=== PATIENT | male | born 1975 | race American Indian/Alaskan Native ===

== ENCOUNTER 2016-04-25 10:32 | Inpatient (IN) | payer MEDICARE ==
--- NOTE | 2016-04-25 10:43 | Emergency Department Report ---
HPI - General Chief Complaint: Chest Pain Time Seen by Provider: 04/25/16 10:40 - HPI HPI: This is a 40-year-old Afro-Guy[place] male presents to the emergency department from home with a complaint of some intermittent chest pain, palpitations and being shocked by his AICD. It is also a pacemaker and the brand is [employer]. Patient has a history of CHF, hypertension and is legally deaf. Per EMS, the family says that he has been shocked multiple times recently and it happened again this morning. The patient usually goes to [facility], as that is closest to his house, but EMS was diverted as they are diverting any critical care patients allegedly. He denies any shortness of breath or fever, back pain. He was not given anything for symptoms prior to presentation. ED Past Medical Hx - Past Medical History Previous Medical History?: Yes Hx Congestive Heart Failure: Yes Hx Renal Disease: Yes - Surgical History Hx Pacemaker: Yes Hx Internal Defibrillator: Yes - Social History Smoking Status: Unknown if ever smoked - Medications Home Medications: Home Medications Medication Instructions Recorded Confirmed Last Taken Type Albuterol Sulfate [Proair 90 mcg IH Q6H 04/25/16 04/25/16 Unknown History Respiclick] Apixaban [Eliquis] 5 mg PO BID 04/25/16 04/25/16 Unknown History Cyanocobalamin [Vitamin B-12] 1,000 mcg PO DAILY 04/25/16 04/25/16 Unknown History Fluticasone [Flonase] 1 spray NS QDAY 04/25/16 04/25/16 Unknown History Furosemide [Lasix TAB] 40 mg PO BID 04/25/16 04/25/16 Unknown History ISOSORBIDE MONOnitrate [Imdur ER] 30 mg PO DAILY 04/25/16 04/25/16 Unknown History Metoprolol [Lopressor] 100 mg PO BID 04/25/16 04/25/16 Unknown History Pantoprazole [Protonix] 40 mg PO QDAY 04/25/16 04/25/16 Unknown History Simvastatin [Zocor TAB] 20 mg PO QHS 04/25/16 04/25/16 Unknown History Spironolactone [Aldactone] 25 mg PO QDAY 04/25/16 04/25/16 Unknown History glipiZIDE XL [Glucotrol Xl] 2.5 mg PO QAM 04/25/16 04/25/16 Unknown History ED Review of Systems ROS: Stated complaint: CHEST PAIN Other details as noted in HPI Comment: All other systems reviewed and negative Constitutional: denies: chills, fever Eyes: denies: eye pain, eye discharge, vision change ENT: denies: ear pain, throat pain Respiratory: denies: cough, shortness of breath, wheezing Cardiovascular: chest pain, palpitations Gastrointestinal: denies: abdominal pain, nausea, diarrhea Genitourinary: denies: urgency, dysuria Musculoskeletal: denies: back pain, joint swelling, arthralgia Skin: denies: rash, lesions Neurological: denies: headache, weakness, paresthesias Physical Exam - Physical Exam Vital Signs: Vital Signs 04/25/16 10:38 Pulse Rate 173 H Respiratory 20 Rate Blood Pressure 132/100 [Left] O2 Sat by Pulse 100 Oximetry Physical Exam: GENERAL: The patient is well-developed well-nourished. HEENT: Normocephalic. Atraumatic. Extraocular motions are intact. Patient has moist mucous membranes. Pupils equal reactive to light bilaterally. NECK: Supple. Trachea is midline. CHEST/LUNGS: Clear to auscultation. There is no respiratory distress noted. HEART/CARDIOVASCULAR: Irregularly irregular with rapid rate. ABDOMEN: Abdomen is soft, nontender. Patient has normal bowel sounds. There is no abdominal distention. SKIN: Warm and dry. NEURO: The patient is awake, alert, and oriented. The patient is cooperative. The patient has no focal neurologic deficits. The patient has normal speech. MUSCULOSKELETAL: There is no tenderness or deformity. There is no limitation range of motion. There is no evidence of acute injury. ED Course Vital Signs 04/25/16 10:38 Pulse Rate 173 H Respiratory 20 Rate Blood Pressure 132/100 [Left] O2 Sat by Pulse 100 Oximetry ED Medical Decision Making - Lab Data Result diagrams: 04/25/16 10:53 04/25/16 10:53 - EKG Data -: EKG Interpreted by Me - EKG Data Interpretation: other (atrial fibrillation, left bundle-branch block, rate 175 bpm) - Radiology Data Radiology results: image reviewed interpreted by me: Chest x-ray did not show any acute process. Heart is normal shape and size. No effusions. No pneumothorax. No signs of pneumonia seen. - Medical Decision Making 32-year-old male presents to the emergency department with a tachyarrhythmia. Patient had been shocked a few times this morning by his AICD. The rep for [employer] came in and interrogated the AICD/pacemaker and it was sent for 162 bpm but he was going higher than that with his atrial fibrillation. Patient is already on Eloquist. He was given IV push of Cardizem 2 and then started on a drip and this did not convert him but did control her rate. Cardiology is aware that Dr. Butler saw the patient down in the emergency department. Patient will be admitted to the hospital for further evaluation and treatment and is been accepted for admission by the hospitalist, Dr. Bhatt. - Differential Diagnosis atrial fibrillation, OK, V. tach, SVT Critical Care Time: No Critical care attestation.: If time is entered above; I have spent that time in minutes in the direct care of this critically ill patient, excluding procedure time. ED Disposition Clinical Impression: Atrial fibrillation with RVR, Defibrillator discharge, Renal insufficiency Disposition: OP ADMITTED IP TO THIS HOSP Is pt being admited?: Yes Does the pt Need Aspirin: Yes Condition: Stable Time of Disposition: 13:31
[2016-04-25] MEDS ORDERED: CARDIZEM IV ONE ×2 (10:52→12:53)
--- NOTE | 2016-04-25 11:11 | XRay Report ---
CHEST XRAY, 2 VIEWS: History: Chest pain. Findings: No comparison. There is moderate cardiomegaly. Pulmonary vessels are within normal limits. The lungs are clear and fully expanded. No infiltrate, pleural effusion or pneumothorax. Normal thoracic cage. Pacemaker device is in position. IMPRESSION: Cardiomegaly.
[2016-04-25 11:21] LABS: Basophils % (Auto) 0.9 % (0.0-1.8); Eosinophils % (Auto) 0.3 % (0.0-4.3); Mean Corpuscular HGB Conc 31 % (32-34); Mean Corpuscular Volume 70 fl (84-94); Platelet Count 204 K/mm3 (140-440); Red Blood Count 6.97 M/mm3 (3.65-5.03); White Blood Count 5.1 K/mm3 (4.5-11.0)
[2016-04-25 11:24] LABS: Creatine Kinase MB 2.7 ng/mL (0.0-4.0)
[2016-04-25 11:25] LABS: BUN/Creatinine Ratio 22.5; Calcium 9.3 mg/dL (8.4-10.2); Chloride 101.3 mmol/L (98-107); Potassium 4.2 mmol/L (3.6-5.0)
[2016-04-25 11:32] LABS: INR 1.51 (0.87-1.13); Partial Thromboplastin Time 28.3 Sec. (24.2-36.6)
[2016-04-25 11:36] LABS: Mean Corpuscular Hemoglobin 22 pg (28-32)
[2016-04-25 11:37] LABS: Red Cell Distribution Width 20.1 % (13.2-15.2)
--- NOTE | 2016-04-25 13:13 | Admit Criteria Form ---
Admission Criteria Documentation: ATRIAL FIBRILLATION Clinical Indications for Admission to Inpatient Care (Place 'X' for any and all applicable criteria): Admission indicated for ANY ONE of the following(1)(2)(3)(4)(5) : [ ]I. Myocardial ischemia [ ]II. Dyspnea or hypoxemia [ ]III. Hemodynamic instability [ ]IV. Heart failure (e.g., pulmonary edema) (7) [ ]V. New-onset (less than 48 hours) atrial fibrillation with high risk for causing complications secondary to comorbidities (eg, symptomatic heart failure ) [ ]. Altered mental status [ ]VII. Syncope [X]VIII. Patient has implantable cardioverter defibrillator that has fired more than once within past 24hr or needs immediate adjustment of settings that cannot be done other than in inpatient setting. (8) [ ]IX. Suspected accessory pathway (e.g., Zldnz-Bentmoojy-Vfsub syndrome) on ECG [ ]X. Recent systemic thromboembolism (eg, stroke) [ ]XI. Medication toxicity (e.g., digitalis) causing arrhythmia(9) [ ]XII. Underlying medical condition that necessitates inpatient care (e.g., thyrotoxicosis, pneumonia) (10) [ ]XIII. Continuous ECG monitoring is required for condition causing arrhythmia (e.g., severe hyperkalemia, hypokalemia, acid-base disturbance).(11)(12)(13) [ ]XIV. Initiation of antiarrhythmic drug therapy is needed in patient at high risk of adverse effects as indicated by ANY ONE of the following: [ ]a) Significant structural heart disease (e.g., reduced ejection fraction, congenital heart disease, valvular heart disease) [ ]b) Prolonged QT interval [ ]c) Underlying sinus node or atrioventricular conduction disturbances [ ]d) Need for treatment with antiarrhythmic drugs that have significant proarrhythmic potential (e.g., dofetilide, sotalol, procainamide) [ ]e) Patient whose sinus rhythm has never been observed on ECG [ ]XV. Intolerable symptoms despite optimal outpatient treatment [ ]XVI. Elective or urgent cardioversion that cannot be performed on outpatient basis or during observation care. [A] (Use also Atrial Fibrillation: Observation Care ) as appropriate.(14) [ ]XVII.Contraindications and/or Inappropriate clinical situations for Observational Care in patients with Atrial Fibrillation, when ANY ONE of the following is required: [ ]a) Patient with High risk of cardiac embolism (e.g, patients with previous cardiac embolism, LVEF < 40%, age >75 and patients with prosthetic valve) 18 [ ]b) Patient with Moderate risk including DM patient, CAD and patient aged 65-75 18 [ ]c) Patient with any change in cardiac biomarker especially troponin should be managed as high risk in an inpatient setting 19 [ ]d) Physician judgement irrespective of ECG and other diagnostic findings 20 [ ]XVIII.General contraindications and/or Inappropriate clinical situations for Observational Care in patients with Atrial Fibrillation, when ANY ONE of the following is required: [ ]a) Prediction of prolongation of LOS based on ANY ONE of the following may be considered as a contraindication for observational care 2, 3, 4, 5, 6, 7, 8, 9, 10, 11 [ ]i) Age > 65 yrs. [ ]ii) Patient arriving by ambulance [ ]iii) Patient with high acuity [ ]iv) Patient requiring vital sign monitoring [ ]v) Patient on IV medication [ ]b) Systolic blood pressures 180mmHg 3,12 [ ]c) Patient with altered mental status including delirium and other alteration of consciousness3 [ ]d) Patient whose discharge disposition will be to a fpc home or rehabilitation home should not be managed in Emergency Department Observation Unit. CMS rule requires 3 days hospital stay before such placement.3,13 [ ]e) Patient with failure to thrive due to broad array of etiologies 3,16,17 [ ]f) Inability to ambulate 3,14 Extended stay beyond goal length of stay may be needed for (1)(25)(26): [ ]a) Unstable comorbidities [ ]b) Persistently uncontrolled atrial fibrillation or other arrhythmias [ ]c) Acute thromboembolic event (e.g., stroke, limb ischemia) [ ]d) Need for inpatient attainment of full anticoagulation The original [employer] content created by [employer] has been revised. The portions of the content which have been revised are identified through the use of italic text or in bold, and [employer] has neither reviewed nor approved the modified material. All other unmodified content is copyright [employer]. Please see references footnoted in the original [employer] edition 2016 Admission Criteria Met: Yes
[2016-04-25] MEDS: CARDIZEM/D5W 100MG/100ML 100 MG/100 ML BAG IV SCH (13:24)
[2016-04-25] MEDS ORDERED: BABY ASPIRIN PO ONE (13:31)
[2016-04-25 14:23] LABS: Urine Drugs of Abuse Note Disclamer
[2016-04-25 14:38] LABS: Bacteria,Urine 1+ /HPF (Negative); Bilirubin,Urine NEG (Negative); Blood,Urine MOD (Negative); Ketones,Urine NEG (Negative); Leukocyte Esterase,Urine LG (Negative); Mucus,Urine FEW /HPF; Nitrite,Urine NEG (Negative)
[2016-04-25 14:40] LABS: Protein,Urine >500 mg/dL (Negative); WBC,Urine > 182.0 /HPF (0.0-6.0)
--- NOTE | 2016-04-25 15:46 | Consultation ---
History of Present Illness Consult date: 04/25/16 Consult reason: atrial fibrillation History of present illness: 40 YO man with h/o non ischemic cardiomyopathy s/p Bi[employer]ron[employer] dual chamber ICD, Ventricular Tachycardia, persistent atrial fibrillation, hypertension, and prior CVA who presented to ED at [facility] today after multiple ICD shocks. Patient has permanent hearing loss and some element of aphasia from previous CVA and is not able to provide a thorough history. ICD was interrogated today and he has had numerous ATP therapies and several ICD shocks due to likely atrial fibrillation with RVR. He admits to not taking his cardiac medications recently. He has chronic exertional dyspnea with minimal activity including activities of daily living. He was previously followed by Dr. Walter in [place] and was recently evaluated by cardiology at [facility]. Past History Past Medical History: atrial fib, heart failure, hypertension, renal failure, stroke Past Surgical History: Other (ICD implant) Social history: denies: smoking (former smoker) Family history: CAD Medications and Allergies Allergies Allergy/AdvReac Type Severity Reaction Status Date / Time morphine Allergy Unknown Verified 04/25/16 10:38 Home Medications Medication Instructions Recorded Confirmed Last Taken Type Albuterol Sulfate [Proair 90 mcg IH Q6H 04/25/16 04/25/16 Unknown History Respiclick] Apixaban [Eliquis] 5 mg PO BID 04/25/16 04/25/16 Unknown History Cyanocobalamin [Vitamin B-12] 1,000 mcg PO DAILY 04/25/16 04/25/16 Unknown History Fluticasone [Flonase] 1 spray NS QDAY 04/25/16 04/25/16 Unknown History Furosemide [Lasix TAB] 40 mg PO BID 04/25/16 04/25/16 Unknown History ISOSORBIDE MONOnitrate [Imdur ER] 30 mg PO DAILY 04/25/16 04/25/16 Unknown History Metoprolol [Lopressor] 100 mg PO BID 04/25/16 04/25/16 Unknown History Pantoprazole [Protonix] 40 mg PO QDAY 04/25/16 04/25/16 Unknown History Simvastatin [Zocor TAB] 20 mg PO QHS 04/25/16 04/25/16 Unknown History Spironolactone [Aldactone] 25 mg PO QDAY 03/14/17 03/14/17 Unknown History glipiZIDE XL [Glucotrol Xl] 2.5 mg PO QAM 04/25/16 04/25/16 Unknown History Active Meds: Active Medications Diltiazem HCl (Cardizem/D5w 100mg/100ml) 100 mg in 100 mls @ 5 mls/hr IV TITR MARTÍN; 5 MG/HR PRN Reason: Protocol Last Admin: 04/25/16 13:24 Dose: 5 mg/hr, 5 mls/hr Review of Systems All systems: negative (per hpi) Physical Examination Vital Signs Pulse Resp BP Pulse Ox 173 H 20 132/100 100 04/25/16 10:38 04/25/16 10:38 04/25/16 10:38 04/25/16 10:38 General appearance: obese HEENT: Positive: Mucus Membranes Moist Neck: Positive: JVD/HJR (7 cm above sternal notch) Cardiac: Positive: irregularly irregular, Tachycardia Lungs: Positive: Rales (bibasilar crackles) Abdomen: Positive: Soft, Active Bowel Sounds Skin: Positive: Clear Extremities: Present: +3 Edema Results 04/25/16 10:53 04/25/16 10:53 EKG interpretations - EKG Supraventricular dysrhythmia: atrial fibrillation AV and intraventricular conduction: left bundle branch block Assessment and Plan Multiple ICD therapies: Likely inappropriate due to atrial fibrillation with RVR Non Ischemic Cardiomyopathy s/p dual chamber ICD Acute on chronic systolic heart failure: NYHA III Persistent atrial fibrillation CKD Non-specific troponin elevation likely related to multiple ICD therapies and CKD. LBBB Htn S/P CVA Recommend: Restart beta brodie and titrate to maximal tolerated dose. IV diuresis Nephrology evaluation Continue systemic anticoagulation Maintain electrolytes in normal range. ICD has been reprogrammed to prevent future inappropriate ICD shocks. He will eventually benefit from upgrade to [employer]OTH OPERATOR-D and possibly AV node ablation - he will f/u with primary embedded developer at [facility] as outpatient.
[2016-04-25] MEDS ORDERED: TYLENOL PO PRN (15:55)
[2016-04-25] MEDS ORDERED: DULCOLAX PR PRN (15:55)
[2016-04-25] MEDS ORDERED: MILK OF MAGNESIA PO PRN (15:55)
--- NOTE | 2016-04-25 15:59 | History and Physical Report ---
History of Present Illness Date of examination: 04/25/16 Date of admission: 04/25/16 13:32 Chief complaint: Multiple shocks today History of present illness: 40 YO man with h/o non ischemic cardiomyopathy s/p Biotronik dual chamber ICD, Ventricular Tachycardia, persistent atrial fibrillation, hypertension, and prior CVA who presented to ED at [facility] today after multiple ICD shocks. Patient has permanent hearing loss and some element of aphasia from previous CVA and is not able to provide a thorough history. ICD was interrogated today and he has had numerous ATP therapies and several ICD shocks due to likely atrial fibrillation with RVR. He admits to not taking his cardiac medications recently. He has chronic exertional dyspnea with minimal activity including activities of daily living. He was previously followed by Dr. Walter in [place] and was recently evaluated by cardiology at [facility]. Past History Past Medical History: atrial fib, heart failure, hypertension, renal failure, stroke Past Surgical History: Other (ICD implant) Social history: lives with family. denies: smoking (former smoker) Family history: CAD, hypertension Medications and Allergies Allergies Allergy/AdvReac Type Severity Reaction Status Date / Time morphine Allergy Unknown Verified 04/25/16 10:38 Home Medications Medication Instructions Recorded Confirmed Last Taken Type Albuterol Sulfate [Proair 90 mcg IH Q6H 04/25/16 04/25/16 Unknown History Respiclick] Apixaban [Eliquis] 5 mg PO BID 04/25/16 04/25/16 Unknown History Cyanocobalamin [Vitamin B-12] 1,000 mcg PO DAILY 04/25/16 04/25/16 Unknown History Fluticasone [Flonase] 1 spray NS QDAY 04/25/16 04/25/16 Unknown History Furosemide [Lasix TAB] 40 mg PO BID 04/25/16 04/25/16 Unknown History ISOSORBIDE MONOnitrate [Imdur ER] 30 mg PO DAILY 04/25/16 04/25/16 Unknown History Metoprolol [Lopressor] 100 mg PO BID 04/25/16 04/25/16 Unknown History Pantoprazole [Protonix] 40 mg PO QDAY 04/25/16 04/25/16 Unknown History Simvastatin [Zocor TAB] 20 mg PO QHS 04/25/16 04/25/16 Unknown History Spironolactone [Aldactone] 25 mg PO QDAY 04/25/16 04/25/16 Unknown History glipiZIDE XL [Glucotrol Xl] 2.5 mg PO QAM 04/25/16 04/25/16 Unknown History Active Meds: Active Medications Diltiazem HCl (Cardizem/D5w 100mg/100ml) 100 mg in 100 mls @ 5 mls/hr IV TITR MARTÍN; 5 MG/HR PRN Reason: Protocol Last Admin: 04/25/16 13:24 Dose: 5 mg/hr, 5 mls/hr Review of Systems All systems: negative Constitutional: no weight loss, no weight gain Ears, nose, mouth and throat: decreased hearing, no dysphagia, no hoarseness, no sore throat Cardiovascular: palpitations, rapid/irregular heart beat, shortness of breath, decreased exercise tolerance Respiratory: shortness of breath, dyspnea on exertion, no cough with sputum, no excessive sputum, no hemoptysis, no congestion Gastrointestinal: no nausea, no vomiting, no diarrhea Genitourinary Male: no flank pain, no discharge, no urinary frequency, no urinary hesitancy, no nocturia Musculoskeletal: no neck stiffness, no neck pain Integumentary: no rash, no pruritis, no redness Neurological: no seizures, no syncope Psychiatric: change in libido, no anxiety, no depression Endocrine: no cold intolerance, no heat intolerance, no polyphagia, no excessive thirst, no polydipsia, no polyuria Hematologic/Lymphatic: no easy bruising, no easy bleeding Allergic/Immunologic: no urticaria, no allergic rhinitis, no wheezing Exam - Constitutional Vitals: Temp Pulse Resp BP Pulse Ox 87 12 100/72 95 04/25/16 14:00 04/25/16 14:00 04/25/16 14:00 04/25/16 14:00 General appearance: Present: mild distress, well-nourished - EENT Eyes: Present: PERRL ENT: clear oral mucosa, no hearing intact, no dentition normal - Neck Neck: Present: supple, normal ROM - Respiratory Respiratory effort: normal Respiratory: bilateral: rales - Cardiovascular Rhythm: irregularly irregular Heart Sounds: Present: S1 & S2. Absent: rub, click - Extremities Extremities: pulses symmetrical, No edema Peripheral Pulses: within normal limits - Abdominal General gastrointestinal: Present: soft, non-tender, non-distended, normal bowel sounds Male genitourinary: Present: normal - Rectal Rectal Exam: deferred - Integumentary Integumentary: Present: clear, warm, dry - Musculoskeletal Musculoskeletal: gait normal, strength equal bilaterally - Psychiatric Psychiatric: appropriate mood/affect, intact judgment & insight - Neurologic Neurologic: CNII-XII intact, moves all extremities - Allied Health Allied health notes reviewed: nursing, case management Results - Labs CBC & Chem 7: 04/26/16 06:41 04/26/16 06:41 Labs: Laboratory Last Values WBC 5.1 K/mm3 (4.5-11.0) 04/25/16 10:53 RBC 6.97 M/mm3 (3.65-5.03) H 04/25/16 10:53 Hgb 15.0 gm/dl (11.8-15.2) 04/25/16 10:53 Hct 49.0 % (35.5-45.6) H 04/25/16 10:53 MCV 70 fl (84-94) L 04/25/16 10:53 MCH 22 pg (28-32) L 04/25/16 10:53 MCHC 31 % (32-34) L 04/25/16 10:53 RDW 20.1 % (13.2-15.2) H 04/25/16 10:53 Plt Count 204 K/mm3 (140-440) 04/25/16 10:53 Lymph % (Auto) 16.0 % (13.4-35.0) 04/25/16 10:53 [place] % (Auto) 10.0 % (0.0-7.3) H 04/25/16 10:53 Eos % (Auto) 0.3 % (0.0-4.3) 04/25/16 10:53 Baso % (Auto) 0.9 % (0.0-1.8) 04/25/16 10:53 Lymph # 0.8 K/mm3 (1.2-5.4) L 04/25/16 10:53 [place] # 0.5 K/mm3 (0.0-0.8) 04/25/16 10:53 Eos # 0.0 K/mm3 (0.0-0.4) 04/25/16 10:53 Baso # 0.0 K/mm3 (0.0-0.1) 04/25/16 10:53 Seg Neutrophils % 72.8 % (40.0-70.0) H 04/25/16 10:53 Seg Neutrophils # 3.7 K/mm3 (1.8-7.7) 04/25/16 10:53 PT 18.2 Sec. (12.2-14.9) H 04/25/16 10:53 INR 1.51 (0.87-1.13) H 04/25/16 10:53 APTT 28.3 Sec. (24.2-36.6) 04/25/16 10:53 D-Dimer < 136 ng/mlDDU (0-234) 04/25/16 10:53 Sodium 141 mmol/L (137-145) 04/25/16 10:53 Potassium 4.2 mmol/L (3.6-5.0) 04/25/16 10:53 Chloride 101.3 mmol/L (98-107) 04/25/16 10:53 Carbon Dioxide 21 mmol/L (22-30) L 04/25/16 10:53 Anion Gap 23 mmol/L 04/25/16 10:53 BUN 72 mg/dL (9-20) H 04/25/16 10:53 Creatinine 3.2 mg/dL (0.8-1.5) H 04/25/16 10:53 Estimated GFR 22 ml/min 04/25/16 10:53 BUN/Creatinine Ratio 22.50 % 04/25/16 10:53 Glucose 137 mg/dL (75-100) H 04/25/16 10:53 Calcium 9.3 mg/dL (8.4-10.2) 04/25/16 10:53 Total Creatine Kinase 101 units/L (55-170) 04/25/16 10:53 CK-MB (CK-2) 2.7 ng/mL (0.0-4.0) 04/25/16 10:53 CK-MB (CK-2) Rel Index 2.6 (0-4) 04/25/16 10:53 Troponin T 0.037 ng/mL (0.00-0.029) H 04/25/16 10:53 NT-Pro-B Natriuret Pep 72302 pg/mL (0-450) H 04/25/16 10:53 Triglycerides 96 mg/dL (2-149) 04/25/16 10:53 Cholesterol 80 mg/dL (50-199) 04/25/16 10:53 LDL Cholesterol Direct 30 mg/dL (50-130) L 04/25/16 10:53 HDL Cholesterol 31 mg/dL (40-59) L 04/25/16 10:53 Cholesterol/HDL Ratio 2.58 % 04/25/16 10:53 Urine Color [place] (Yellow) 04/25/16 13:40 Urine Turbidity Cloudy (Clear) 04/25/16 13:40 Urine pH 5.0 (5.0-7.0) 04/25/16 13:40 Ur Specific [place] 1.017 (1.003-1.030) 04/25/16 13:40 Urine Protein >500 mg/dL (Negative) 04/25/16 13:40 Urine Glucose (UA) Neg mg/dL (Negative) 04/25/16 13:40 Urine Ketones Neg mg/dL (Negative) 04/25/16 13:40 Urine Blood Mod (Negative) 04/25/16 13:40 Urine Nitrite Neg (Negative) 04/25/16 13:40 Urine Bilirubin Neg (Negative) 04/25/16 13:40 Urine Urobilinogen 2.0 mg/dL (<2.0) 04/25/16 13:40 Ur Leukocyte Esterase Lg (Negative) 04/25/16 13:40 Urine WBC (Auto) > 182.0 /HPF (0.0-6.0) H 04/25/16 13:40 Urine RBC (Auto) 15.0 /HPF (0.0-6.0) 04/25/16 13:40 U Epithel Cells (Auto) 3.0 /HPF (0-13.0) 04/25/16 13:40 Urine Bacteria (Auto) 1+ /HPF (Negative) 04/25/16 13:40 Ur Transition Epith Cell 2 /HPF 04/25/16 13:40 Urine Mucus Few /HPF 04/25/16 13:40 Urine Opiates Screen Presumptive negative 04/25/16 13:40 Urine Methadone Screen Presumptive negative 04/25/16 13:40 Ur Barbiturates Screen Presumptive negative 04/25/16 13:40 Ur Phencyclidine Scrn Presumptive negative 04/25/16 13:40 Ur Amphetamines Screen Presumptive negative 04/25/16 13:40 U Benzodiazepines Scrn Presumptive negative 04/25/16 13:40 Urine Cocaine Screen Presumptive negative 04/25/16 13:40 U Marijuana (THC) Screen Presumptive negative 04/25/16 13:40 Drugs of Abuse Note Disclamer 04/25/16 13:40 Short CBC 04/25/16 Range/Units 10:53 WBC 5.1 (4.5-11.0) K/mm3 Hgb 15.0 (11.8-15.2) gm/dl Hct 49.0 H (35.5-45.6) % Plt Count 204 (140-440) K/mm3 BMP 04/25/16 10:53 Sodium 141 Potassium 4.2 Chloride 101.3 Carbon Dioxide 21 L BUN 72 H Creatinine 3.2 H Glucose 137 H Calcium 9.3 Cardiac Enzymes 04/25/16 Range/Units 10:53 Total Creatine Kinase 101 (55-170) units/L CK-MB (CK-2) 2.7 (0.0-4.0) ng/mL Troponin T 0.037 H (0.00-0.029) ng/mL Urine 04/25/16 Range/Units 13:40 Urine Color Mylene (Yellow) Urine pH 5.0 (5.0-7.0) Ur Specific [place] 1.017 (1.003-1.030) Urine Protein >500 (Negative) mg/dL Urine Glucose (UA) Neg (Negative) mg/dL Short CBC 04/25/16 04/26/16 Range/Units 10:53 06:41 WBC 5.1 5.1 (4.5-11.0) K/mm3 Hgb 15.0 14.2 (11.8-15.2) gm/dl Hct 49.0 H 46.3 H (35.5-45.6) % Plt Count 204 201 (140-440) K/mm3 BMP 04/25/16 04/26/16 10:53 06:41 Sodium 141 139 Potassium 4.2 4.4 Chloride 101.3 98.6 Carbon Dioxide 21 L 25 BUN 72 H 73 H Creatinine 3.2 H 2.9 H Glucose 137 H 126 H Calcium 9.3 9.2 Cardiac Enzymes 04/25/16 04/25/16 04/25/16 Range/Units 10:53 15:45 15:45 Total Creatine Kinase 101 103 (55-170) units/L CK-MB (CK-2) 2.7 2.8 (0.0-4.0) ng/mL Troponin T 0.037 H 0.047 H D 0.044 H (0.00-0.029) ng/mL Liver Function 04/26/16 Range/Units 06:41 Total Bilirubin 3.0 H (0.1-1.2) mg/dL AST 33 (5-40) units/L ALT 60 H (7-56) units/L Alkaline Phosphatase 101 (35-129) units/L Albumin 2.6 L (3.9-5) g/dL Urine 04/25/16 Range/Units 13:40 Urine Color [place] (Yellow) Urine pH 5.0 (5.0-7.0) Ur Specific [place] 1.017 (1.003-1.030) Urine Protein >500 (Negative) mg/dL Urine Glucose (UA) Neg (Negative) mg/dL - Imaging and Cardiology EKG: report reviewed Chest x-ray: report reviewed Assessment and Plan Advance Directives: Yes (Full code) VTE prophylaxis?: Chemical Plan of care discussed with patient/family: Yes - Patient Problems (1) Atrial fibrillation with RVR Current Visit: Yes Status: Acute Plan to address problem: Cont Cardizem and metoprolol.Patient initiated on metoprolol at 50 mg tid.On Metoprolol 100 bid originally. (2) Defibrillator discharge Current Visit: Yes Status: Acute Plan to address problem: Deferred to Dr Butler-EPS specialist (3) Renal insufficiency Current Visit: Yes Status: Chronic Plan to address problem: Nephrology consulted (4) Acute exacerbation of CHF (congestive heart failure) Current Visit: Yes Status: Acute Qualifiers: Congestive heart failure type: combined Qualified Code(s): I50.43 - Acute on chronic combined systolic (congestive) and diastolic (congestive) heart failure Plan to address problem: Lasix 40 iv q12h (5) T2DM (type 2 diabetes mellitus) Current Visit: Yes Status: Acute Qualifiers: Diabetes mellitus complication status: without complication Diabetes mellitus complication detail: D Diabetic retinopathy severity: D Proliferative retinopathy type: P Diabetes mellitus macular edema: D Laterality: L Chronic kidney disease stage: C Plan to address problem: Cont oral Hypoglycemics and coverage (6) DVT prophylaxis Current Visit: Yes Status: Acute Plan to address problem: On Eliquis
[2016-04-25 16:28] LABS: Creatine Kinase MB 2.8 ng/mL (0.0-4.0)
[2016-04-25] MEDS: LOPRESSOR PO SCH (21:06)
[2016-04-26] MEDS: CARDIZEM/D5W 100MG/100ML 100 MG/100 ML BAG IV SCH (05:55)
[2016-04-26 07:14] LABS: Basophils % (Auto) 1.2 % (0.0-1.8); Eosinophils % (Auto) 0.6 % (0.0-4.3); Mean Corpuscular HGB Conc 31 % (32-34); Platelet Count 201 K/mm3 (140-440); Red Blood Count 6.66 M/mm3 (3.65-5.03); White Blood Count 5.1 K/mm3 (4.5-11.0)
[2016-04-26 07:20] LABS: Albumin 2.6 g/dL (3.9-5); Albumin/Globulin Ratio 0.7 %; BUN/Creatinine Ratio 25.17; Calcium 9.2 mg/dL (8.4-10.2); Chloride 98.6 mmol/L (98-107); Potassium 4.4 mmol/L (3.6-5.0); Total Protein 6.3 g/dL (6.3-8.2)
[2016-04-26 07:31] LABS: Hemoglobin 14.2 gm/dl (11.8-15.2)
[2016-04-26 07:32] LABS: Hematocrit 46.3 % (35.5-45.6); Mean Corpuscular Hemoglobin 21 pg (28-32); Mean Corpuscular Volume 70 fl (84-94); Red Cell Distribution Width 20.1 % (13.2-15.2)
[2016-04-26] MEDS: LOPRESSOR PO SCH ×3 (08:38→21:25)
[2016-04-26] MEDS ORDERED: NON-FORMULARY (Albuterol Sulfate [Proair Respiclick] 90 MCG) IH SCH (09:00)
[2016-04-26] MEDS ORDERED: XYLOCAINE 1% MPF 5 mL INFILTRATI ONE (09:08)
--- NOTE | 2016-04-26 09:37 | Consultation ---
History of Present Illness - Reason for Consult Consult date: 04/26/16 acute renal failure, chronic renal failure Requesting physician: LANDEN SCRUGGS - History of Present Illness This is a 40-year-old Afro-[place] male presents to the emergency department from home with a complaint of some intermittent chest pain, palpitations and being shocked by his AICD. It is also a pacemaker and the brand is Biotronik. Patient has a history of CHF, hypertension and is legally deaf. Per EMS, the family says that he has been shocked multiple times recently and it happened again this morning. The patient usually goes to [facility], as that is closest to his house, but EMS was diverted as they are diverting any critical care patients allegedly. He denies any shortness of breath or fever, back pain. He was not given anything for symptoms prior to presentation. Past History Past Medical History: atrial fib, heart failure, hypertension, renal failure, stroke Past Surgical History: Other (ICD implant) Social history: lives with family. denies: smoking (former smoker) Family history: CAD, hypertension Medications and Allergies Allergies Allergy/AdvReac Type Severity Reaction Status Date / Time morphine Allergy Unknown Verified 04/25/16 10:38 Home Medications Medication Instructions Recorded Confirmed Last Taken Type Albuterol Sulfate [Proair 90 mcg IH Q6H 04/25/16 04/25/16 Unknown History Respiclick] Apixaban [Eliquis] 5 mg PO BID 04/25/16 04/25/16 Unknown History Cyanocobalamin [Vitamin B-12] 1,000 mcg PO DAILY 04/25/16 04/25/16 Unknown History Fluticasone [Flonase] 1 spray NS QDAY 04/25/16 04/25/16 Unknown History Furosemide [Lasix TAB] 40 mg PO BID 04/25/16 04/25/16 Unknown History ISOSORBIDE MONOnitrate [Imdur ER] 30 mg PO DAILY 04/25/16 04/25/16 Unknown History Metoprolol [Lopressor] 100 mg PO BID 04/25/16 04/25/16 Unknown History Pantoprazole [Protonix] 40 mg PO QDAY 04/25/16 04/25/16 Unknown History Simvastatin [Zocor TAB] 20 mg PO QHS 04/25/16 04/25/16 Unknown History Spironolactone [Aldactone] 25 mg PO QDAY 04/25/16 04/25/16 Unknown History glipiZIDE XL [Glucotrol Xl] 2.5 mg PO QAM 04/25/16 04/25/16 Unknown History Active Meds: Active Medications Acetaminophen (Tylenol) 650 mg PO Q4H PRN PRN Reason: Pain MILD(1-3)/Fever >100.5/COON Last Admin: 04/25/16 22:23 Dose: 650 mg Albuterol (Proventil) 2.5 mg IH Q6HRT MARTÍN Apixaban (Eliquis) 5 mg PO BID MARTÍN Bisacodyl (Dulcolax) 10 mg LA QDAY PRN PRN Reason: Constipation unrelieved by [facility] Cyanocobalamin (Vitamin B-12) 1,000 mcg PO DAILY [facility] Fluticasone Propionate (Flonase) 100 mcg NS QDAY [facility] Furosemide (Lasix) 40 mg IV 0600,1800 [facility] Glipizide (Glucotrol Xl) 2.5 mg PO QDDIAB [facility] Diltiazem HCl (Cardizem/D5w 100mg/100ml) 100 mg in 100 mls @ 5 mls/hr IV TITR MARTÍN; 5 MG/HR PRN Reason: Protocol Last Admin: 04/26/16 05:55 Dose: 5 mg/hr, 5 mls/hr Ceftriaxone Sodium (Rocephin/Ns 1 Gm/50 Ml) 1 gm in 50 mls @ 100 mls/hr IV Q24HR [facility] Insulin Aspart (Novolog) 0 units SUB-Q ACHS MARTÍN PRN Reason: Protocol Isosorbide Mononitrate (Imdur) 30 mg PO DAILY [facility] Magnesium Hydroxide (Milk Of Magnesia) 30 ml PO Q4H PRN PRN Reason: Constipation Metoprolol Tartrate (Lopressor) 50 mg PO TID [facility] Last Admin: 04/26/16 08:38 Dose: 50 mg Ondansetron HCl (Zofran) 4 mg IV Q8H PRN PRN Reason: N/V unrelieved by Reglan Oxycodone/Acetaminophen (Percocet 5/325) 1 tab PO Q6H PRN PRN Reason: Pain, Moderate (4-6) Pantoprazole Sodium (Protonix) 40 mg PO QDAY MARTÍN Simvastatin (Zocor) 20 mg PO QHS MART[facility]N Spironolactone (Aldactone) 25 mg PO QDAY [facility] Review of Systems Constitutional: fatigue, weakness, malaise Cardiovascular: chest pain, rapid/irregular heart beat, shortness of breath Exam - Vital Signs Vital signs: Vital Signs Pulse Resp BP Pulse Ox 173 H 20 132/100 100 04/25/16 10:38 04/25/16 10:38 04/25/16 10:38 04/25/16 10:38 - Physical Exam Narrative exam: GENERAL: The patient is well-developed well-nourished. HEENT: Normocephalic. Atraumatic. Extraocular motions are intact. Patient has moist mucous membranes. Pupils equal reactive to light bilaterally. NECK: Supple. Trachea is midline. CHEST/LUNGS: Clear to auscultation. There is no respiratory distress noted. HEART/CARDIOVASCULAR: Irregularly irregular with rapid rate. ABDOMEN: Abdomen is soft, nontender. Patient has normal bowel sounds. There is no abdominal distention. SKIN: Warm and dry. NEURO: The patient is awake, alert, and oriented. The patient is cooperative. The patient has no focal neurologic deficits. The patient has normal speech. MUSCULOSKELETAL: There is no tenderness or deformity. There is no limitation range of motion. There is no evidence of acute injury. Results - Lab Results 04/26/16 06:41 04/26/16 06:41 Most recent lab results Calcium 9.2 mg/dL (8.4-10.2) 04/26/16 06:41 Assessment and Plan Impression: * amira on ?ckd * cardiomyopathy * s/p aicd discharge * arrythmia * htn * UTI Plan: * renal us, ua and urine lytes * avoid nephrotoxins * strict i/os * renal diet * iv abx * would benefit from inotropic therapy * continue diuresis
[2016-04-26] MEDS ORDERED: LASIX IV SCH ×2 (10:00→18:00)
[2016-04-26] MEDS ORDERED: ROCEPHIN 1,000 MG in NACL 0.9% 50 ML IV SCH (10:00)
[2016-04-26] MEDS ORDERED: IMDUR PO SCH (10:00)
[2016-04-26] MEDS ORDERED: ALDACTONE PO SCH (10:00)
[2016-04-26] MEDS: ROCEPHIN/NS 1 GM/50 ML 1 GM/50 ML BAG IV SCH (10:00)
[2016-04-26] MEDS ORDERED: LOPRESSOR PO SCH (10:00)
[2016-04-26] MEDS: ZOFRAN IV PRN (10:07)
[2016-04-26] MEDS: ELIQUIS PO SCH ×2 (10:12→21:25)
[2016-04-26] MEDS: PROTONIX PO SCH (10:15)
[2016-04-26] MEDS: VITAMIN B-12 PO SCH (10:15)
[2016-04-26] MEDS: GLUCOTROL XL PO SCH (10:19)
[2016-04-26] MEDS: PROVENTIL IH SCH ×3 (10:31→19:23)
--- NOTE | 2016-04-26 10:38 | Progress Note ---
Assessment and Plan Multiple ICD therapies: Likely inappropriate due to atrial fibrillation with RVR Non Ischemic Cardiomyopathy s/p dual chamber ICD, LVEF 15-20% 02/2016 Acute on chronic systolic heart failure: NYHA III Persistent atrial fibrillation CKD Non-specific troponin elevation likely related to multiple ICD therapies and CKD. LBBB Htn S/P CVA Recommend: Continue beta brodie Discontinue IV diltiazem Start low dose digoxin every other day Monitor level closely Start IV milrinone Discontinue Imdur and aldactone Increase lasix to 80 mg IV q12hrs Continue eliquis Subjective Date of service: 04/26/16 Principal diagnosis: Acute on chronic systolic heart failure Interval history: Patient is not verbal. History obtained from family member at bedside. Recent hospitalizations for CHF this year x 4 Objective Vital Signs Temp Pulse Pulse Pulse Resp BP BP 04/26/16 09:12 98.2 F 77 18 04/26/16 08:38 100 H 04/26/16 07:43 97.6 F 90 18 04/26/16 06:11 97.6 F 90 20 133/94 04/26/16 05:55 90 133/94 04/26/16 00:46 04/26/16 00:30 97.7 F 50 L 18 04/25/16 21:51 97.9 F 48 L 20 04/25/16 21:06 95 H 121/73 04/25/16 18:00 97.6 F 102 H 20 143/48 04/25/16 14:00 87 12 100/72 BP Pulse Ox 04/26/16 09:12 117/73 91 04/26/16 08:38 04/26/16 07:43 133/94 96 04/26/16 06:11 100 04/26/16 05:55 04/26/16 00:46 95 04/26/16 00:30 95 04/25/16 21:51 121/73 97 04/25/16 21:06 04/25/16 18:00 96 04/25/16 14:00 95 - Physical Examination General: Appears Well HEENT: Positive: Mucus Membranes Moist Neck: Positive: JVD/HJR (7 cm above sternal notch) Cardiac: Positive: irregularly irregular Lungs: Positive: Normal Breath Sounds Abdomen: Positive: Soft, Active Bowel Sounds Skin: Positive: Clear Extremities: Present: +3 Edema - Labs and Meds Cardiac Enzymes 04/25/16 04/26/16 Range/Units 15:45 06:41 AST 33 (5-40) units/L CK-MB (CK-2) 2.8 (0.0-4.0) ng/mL CBC 04/26/16 Range/Units 06:41 WBC 5.1 (4.5-11.0) K/mm3 RBC 6.66 H (3.65-5.03) M/mm3 Hgb 14.2 (11.8-15.2) gm/dl Hct 46.3 H (35.5-45.6) % Plt Count 201 (140-440) K/mm3 Lymph # 0.9 L (1.2-5.4) K/mm3 [place] # 0.5 (0.0-0.8) K/mm3 Eos # 0.0 (0.0-0.4) K/mm3 Baso # 0.1 (0.0-0.1) K/mm3 Comprehensive Metabolic Panel 04/26/16 Range/Units 06:41 Sodium 139 (137-145) mmol/L Potassium 4.4 (3.6-5.0) mmol/L Chloride 98.6 (98-107) mmol/L Carbon Dioxide 25 (22-30) mmol/L BUN 73 H (9-20) mg/dL Creatinine 2.9 H (0.8-1.5) mg/dL Glucose 126 H (75-100) mg/dL Calcium 9.2 (8.4-10.2) mg/dL AST 33 (5-40) units/L ALT 60 H (7-56) units/L Alkaline Phosphatase 101 (35-129) units/L Total Protein 6.3 (6.3-8.2) g/dL Albumin 2.6 L (3.9-5) g/dL - Imaging and Cardiology EKG: report reviewed AV and intraventricular conduction: left bundle branch block
[2016-04-26] MEDS: LANOXIN PO SCH (12:42)
[2016-04-26] MEDS: FLONASE NS SCH (12:43)
[2016-04-26] MEDS: PRIMACOR 20 MG in D5W 80 ML IV SCH ×2 (12:49→18:42)
[2016-04-26] MEDS: NOVOLOG SUB-Q SCH ×2 (12:49→17:56)
--- NOTE | 2016-04-26 14:27 | Ultrasound Report ---
Renal ultrasound: The right renal length is 11.3 cm and the left renal length is 11 cm. Both kidneys are markedly echogenic. There is no evidence of renal mass nor obstructive uropathy. Imaging over the region of the urinary bladder failed to identify this structure however he gives a history of emptying the bladder just prior to the exam. Impressions: Echogenic kidneys consistent with medical renal disease.
--- NOTE | 2016-04-26 17:06 | Progress Note ---
Assessment and Plan Assessment and plan: Multiple AICD discharges. he was seen by Dr. Butler Atrial fibrillation with rvr. Started on Milrinone drip. He has been evaluated by Dr. Butler Persistent afib. On Eliquis for anticoagulation Acute on chronic systolic CHF. Lasix iv. Started on Milrinone drip. Chronic kidney disease. Nephrology following. Nonischemic cardiomyopathy s/p AICD placement Hypertension. BP stable Diabetes. Check fingerstick Qac hs Morbid obesity. DVT prophylaxis. On Eliquis Full code status History Interval history: AICD firing, no chest pain Hospitalist Physical - Physical exam Narrative exam: Gen: not in acute distress, morbidly obese HEENT: normocephalic,atraumatic Neck :supple, no JVD Lungs: clear to auscultation bilaterally, no crackles no wheezes Heart: S1 and S2 irregular, no murmurs no gallops,no rubs Abdomen: soft nontender, nondistended, normal bowel sounds Extremities: no edema, no clubbing or cyanosis Neuro: Awake alert oriented, hearing impaired Psych: Normal mood - Constitutional Vitals: Temp Pulse Resp BP Pulse Ox 98.2 F 60 20 124/87 98 04/26/16 13:22 04/26/16 13:22 04/26/16 13:22 04/26/16 13:22 04/26/16 13:22 General appearance: Present: mild distress, well-nourished Results - Labs CBC & Chem 7: 04/26/16 06:41 04/27/16 05:55 Labs: Laboratory Last Values WBC 5.1 K/mm3 (4.5-11.0) 04/26/16 06:41 RBC 6.66 M/mm3 (3.65-5.03) H 04/26/16 06:41 Hgb 14.2 gm/dl (11.8-15.2) 04/26/16 06:41 Hct 46.3 % (35.5-45.6) H 04/26/16 06:41 MCV 70 fl (84-94) L 04/26/16 06:41 MCH 21 pg (28-32) L 04/26/16 06:41 MCHC 31 % (32-34) L 04/26/16 06:41 RDW 20.1 % (13.2-15.2) H 04/26/16 06:41 Plt Count 201 K/mm3 (140-440) 04/26/16 06:41 Lymph % (Auto) 18.6 % (13.4-35.0) 04/26/16 06:41 [place] % (Auto) 9.6 % (0.0-7.3) H 04/26/16 06:41 Eos % (Auto) 0.6 % (0.0-4.3) 04/26/16 06:41 Baso % (Auto) 1.2 % (0.0-1.8) 04/26/16 06:41 Lymph # 0.9 K/mm3 (1.2-5.4) L 04/26/16 06:41 [place] # 0.5 K/mm3 (0.0-0.8) 04/26/16 06:41 Eos # 0.0 K/mm3 (0.0-0.4) 04/26/16 06:41 Baso # 0.1 K/mm3 (0.0-0.1) 04/26/16 06:41 Seg Neutrophils % 70.0 % (40.0-70.0) 04/26/16 06:41 Seg Neutrophils # 3.5 K/mm3 (1.8-7.7) 04/26/16 06:41 PT 18.2 Sec. (12.2-14.9) H 04/25/16 10:53 INR 1.51 (0.87-1.13) H 04/25/16 10:53 APTT 28.3 Sec. (24.2-36.6) 04/25/16 10:53 D-Dimer < 136 ng/mlDDU (0-234) 04/25/16 10:53 Sodium 139 mmol/L (137-145) 04/26/16 06:41 Potassium 4.4 mmol/L (3.6-5.0) 04/26/16 06:41 Chloride 98.6 mmol/L (98-107) 04/26/16 06:41 Carbon Dioxide 25 mmol/L (22-30) 04/26/16 06:41 Anion Gap 20 mmol/L 04/26/16 06:41 BUN 73 mg/dL (9-20) H 04/26/16 06:41 Creatinine 2.9 mg/dL (0.8-1.5) H 04/26/16 06:41 Estimated GFR 30 ml/min 04/26/16 06:41 BUN/Creatinine Ratio 25.17 % 04/26/16 06:41 Glucose 126 mg/dL (75-100) H 04/26/16 06:41 Hemoglobin A1c 6.6 % (4-6) H 04/25/16 16:27 Calcium 9.2 mg/dL (8.4-10.2) 04/26/16 06:41 Total Bilirubin 3.0 mg/dL (0.1-1.2) H 04/26/16 06:41 AST 33 units/L (5-40) 04/26/16 06:41 ALT 60 units/L (7-56) H 04/26/16 06:41 Alkaline Phosphatase 101 units/L (35-129) 04/26/16 06:41 Total Creatine Kinase 103 units/L (55-170) 04/25/16 15:45 CK-MB (CK-2) 2.8 ng/mL (0.0-4.0) 04/25/16 15:45 CK-MB (CK-2) Rel Index 2.7 (0-4) 04/25/16 15:45 Troponin T 0.047 ng/mL (0.00-0.029) H D 04/25/16 15:45 NT-Pro-B Natriuret Pep 61877 pg/mL (0-450) H 04/25/16 10:53 Total Protein 6.3 g/dL (6.3-8.2) 04/26/16 06:41 Albumin 2.6 g/dL (3.9-5) L 04/26/16 06:41 Albumin/Globulin Ratio 0.7 % 04/26/16 06:41 Triglycerides 96 mg/dL (2-149) 04/25/16 10:53 Cholesterol 80 mg/dL (50-199) 04/25/16 10:53 LDL Cholesterol Direct 30 mg/dL (50-130) L 04/25/16 10:53 HDL Cholesterol 31 mg/dL (40-59) L 04/25/16 10:53 Cholesterol/HDL Ratio 2.58 % 04/25/16 10:53 Urine Color Mylene (Yellow) 04/25/16 13:40 Urine Turbidity Cloudy (Clear) 04/25/16 13:40 Urine pH 5.0 (5.0-7.0) 04/25/16 13:40 Ur Specific [place] 1.017 (1.003-1.030) 04/25/16 13:40 Urine Protein >500 mg/dL (Negative) 04/25/16 13:40 Urine Glucose (UA) Neg mg/dL (Negative) 04/25/16 13:40 Urine Ketones Neg mg/dL (Negative) 04/25/16 13:40 Urine Blood Mod (Negative) 04/25/16 13:40 Urine Nitrite Neg (Negative) 04/25/16 13:40 Urine Bilirubin Neg (Negative) 04/25/16 13:40 Urine Urobilinogen 2.0 mg/dL (<2.0) 04/25/16 13:40 Ur Leukocyte Esterase Lg (Negative) 04/25/16 13:40 Urine WBC (Auto) > 182.0 /HPF (0.0-6.0) H 04/25/16 13:40 Urine RBC (Auto) 15.0 /HPF (0.0-6.0) 04/25/16 13:40 U Epithel Cells (Auto) 3.0 /HPF (0-13.0) 04/25/16 13:40 Urine Bacteria (Auto) 1+ /HPF (Negative) 04/25/16 13:40 Ur Transition Epith Cell 2 /HPF 04/25/16 13:40 Urine Mucus Few /HPF 04/25/16 13:40 Urine Creatinine 102.8 mg/dL (0.1-20.0) H 04/26/16 16:15 Urine Sodium 12 mEq/L 04/26/16 16:15 Urine Total Protein 187 mg/dL (5-11.8) H 04/26/16 16:15 Urine Opiates Screen Presumptive negative 04/25/16 13:40 Urine Methadone Screen Presumptive negative 04/25/16 13:40 Ur Barbiturates Screen Presumptive negative 04/25/16 13:40 Ur Phencyclidine Scrn Presumptive negative 04/25/16 13:40 Ur Amphetamines Screen Presumptive negative 04/25/16 13:40 U Benzodiazepines Scrn Presumptive negative 04/25/16 13:40 Urine Cocaine Screen Presumptive negative 04/25/16 13:40 U Marijuana (THC) Screen Presumptive negative 04/25/16 13:40 Drugs of Abuse Note Disclamer 04/25/16 13:40
[2016-04-26] MEDS: LASIX IV SCH (17:56)
[2016-04-26] MEDS: ZOCOR PO SCH (21:25)
[2016-04-27] MEDS: NOVOLOG SUB-Q SCH ×4 (01:05→22:50)
[2016-04-27] MEDS: PROVENTIL IH SCH ×4 (04:25→22:08)
[2016-04-27] MEDS: PRIMACOR 20 MG in D5W 80 ML IV SCH ×2 (06:03→13:57)
[2016-04-27] MEDS: LASIX IV SCH ×2 (06:05→17:50)
[2016-04-27 07:12] LABS: BUN/Creatinine Ratio 24.82; Calcium 8.4 mg/dL (8.4-10.2); Chloride 102.5 mmol/L (98-107); Potassium 3.8 mmol/L (3.6-5.0)
--- NOTE | 2016-04-27 09:27 | Progress Note ---
Assessment and Plan Impression: * Acute kidney injury secondary to ?decreased effective circulatory volume vs chronic kidney disease * s/p ACID discharge * Nonischemic cardiomyopathy - LVEF 15-20% (Feb 2016) * Atrial fibrillation * Hypertension * UTI Plan: * Renal function is stable * Note addition of Milrinone gtt * Diuesis w/ IV lasix 80mg IV q12h * Avoid nephrotoxins * Strict I/O * Fluid restriction Subjective Date of service: 04/27/16 Principal diagnosis: Acute on chronic systolic heart failure Interval history: at bedside. States that swelling is improving. Patient denies SOB. Objective - Vital Signs Vital signs: Vital Signs - 12hr 04/27/16 04/27/16 04/27/16 00:34 04:25 04:40 Temperature 97.9 F 97.9 F Pulse Rate [ 61 90 Right Radial] Pulse Rate [ 99 H Throughout] Respiratory 20 20 Rate Respiratory 18 Rate [ Throughout] Blood Pressure 133/82 120/88 [Right Radial Artery] O2 Sat by Pulse 95 99 Oximetry 04/27/16 04:44 Temperature Pulse Rate [ Right Radial] Pulse Rate [ 78 Throughout] Respiratory Rate Respiratory 18 Rate [ Throughout] Blood Pressure [Right Radial Artery] O2 Sat by Pulse Oximetry - General Appearance General appearance: well-developed, well-nourished EENT: ATNC Respiratory: Present: Decreased Breath Sounds Cardiology: irregular Gastrointestinal: normal, no tenderness, no distended, obese Integumentary: no rash, warm and dry Neurologic: other (alert) Musculoskeletal: other (2+ pitting edema) Psychiatric: mood/affect appropriate, cooperative - Lab 04/26/16 06:41 04/27/16 05:55 Most recent lab results Calcium 8.4 mg/dL (8.4-10.2) 04/27/16 05:55 Urine Creatinine 102.8 mg/dL (0.1-20.0) H 04/26/16 16:15 Urine Sodium 12 mEq/L 04/26/16 16:15 Urine Total Protein 187 mg/dL (5-11.8) H 04/26/16 16:15
[2016-04-27] MEDS: PROTONIX PO SCH (11:11)
[2016-04-27] MEDS: VITAMIN B-12 PO SCH (11:11)
[2016-04-27] MEDS: ELIQUIS PO SCH ×2 (11:11→21:37)
[2016-04-27] MEDS: GLUCOTROL XL PO SCH (11:14)
[2016-04-27] MEDS: LOPRESSOR PO SCH ×3 (11:15→21:35)
[2016-04-27] MEDS: FLONASE NS SCH (11:19)
[2016-04-27] MEDS: ROCEPHIN/NS 1 GM/50 ML 1 GM/50 ML BAG IV SCH (11:21)
--- NOTE | 2016-04-27 12:20 | Progress Note ---
Assessment and Plan Multiple ICD therapies: Likely inappropriate due to atrial fibrillation with RVR Non Ischemic Cardiomyopathy s/p dual chamber ICD, LVEF 15-20% 02/2016 Acute on chronic systolic heart failure: NYHA III Persistent atrial fibrillation on eliquis for anticoagulation CKD Non-specific troponin elevation likely related to multiple ICD therapies and CKD. LBBB Htn S/P CVA Recommend: Medical therapy for systolic heart failure. Continue IV milrinone for aggressive diuresis Rate control for persistent afib. Strict I's and O's Dietary restrictions Subjective Date of service: 04/27/16 Principal diagnosis: Acute on chronic systolic heart failure Interval history: No distress noted. No cardiac events overnight. Continues on IV milrinone. Objective Vital Signs Temp Pulse Pulse Pulse Pulse Pulse Resp 04/27/16 11:23 52 L 04/27/16 11:14 57 L 57 L 04/27/16 09:39 97.3 F L 60 20 04/27/16 04:44 78 04/27/16 04:40 97.9 F 90 20 04/27/16 04:25 99 H 04/27/16 00:34 97.9 F 61 20 04/26/16 21:25 110 H 04/26/16 21:21 97.7 F 53 L 20 04/26/16 19:35 105 H 04/26/16 19:25 101 H 04/26/16 18:23 97.5 F L 56 L 18 04/26/16 15:15 58 L 04/26/16 14:55 52 L 04/26/16 13:22 98.2 F 60 20 04/26/16 12:42 76 Resp Resp BP BP BP Pulse Ox 04/27/16 11:23 20 04/27/16 11:14 20 20 04/27/16 09:39 120/97 100 04/27/16 04:44 18 04/27/16 04:40 120/88 99 04/27/16 04:25 18 04/27/16 00:34 133/82 95 04/26/16 21:25 138/87 04/26/16 21:21 138/87 99 04/26/16 19:35 20 04/26/16 19:25 20 04/26/16 18:23 98/64 95 04/26/16 15:15 20 04/26/16 14:55 18 04/26/16 13:22 124/87 98 04/26/16 12:42 - Physical Examination General: No Apparent Distress Cardiac: Positive: irregularly irregular Extremities: Present: +3 Edema - Labs and Meds Comprehensive Metabolic Panel 04/27/16 Range/Units 05:55 Sodium 146 H D (137-145) mmol/L Potassium 3.8 (3.6-5.0) mmol/L Chloride 102.5 (98-107) mmol/L Carbon Dioxide 25 (22-30) mmol/L BUN 72 H (9-20) mg/dL Creatinine 2.9 H (0.8-1.5) mg/dL Glucose 134 H (75-100) mg/dL Calcium 8.4 (8.4-10.2) mg/dL - Imaging and Cardiology EKG: report reviewed AV and intraventricular conduction: left bundle branch block
--- NOTE | 2016-04-27 13:25 | Ultrasound Report ---
Bladder sonogram: History: Renal failure. Findings: The prevoid volume 486 cubic centimeter. Postvoid volume 93 cubic centimeter. Impression: Findings as detailed above.
[2016-04-27] MEDS: PERCOCET 5/325 PO PRN (21:28)
[2016-04-27] MEDS: ZOCOR PO SCH (21:34)
--- NOTE | 2016-04-28 02:01 | Progress Note ---
Assessment and Plan Assessment and plan: Multiple AICD discharges. He was seen by Dr. Butler, yesterday. No more discharges since admitted Atrial fibrillation with rvr. Started on Milrinone drip. rate improving. Persistent afib. On Eliquis for anticoagulation Acute on chronic systolic CHF. Cont Lasix iv, Milrinone drip. Chronic kidney disease. Nephrology following.Cr 2.4. Baseline unknown but he has history of CKD. Nonischemic cardiomyopathy s/p AICD placement Hypertension. BP stable Diabetes. Check fingerstick Qac hs Morbid obesity. DVT prophylaxis. On Eliquis History of stroke. Full code status History Interval history: Patient admitted for multiple AICD firing, no chest pain Hospitalist Physical - Physical exam Narrative exam: Gen: not in acute distress, morbidly obese HEENT: normocephalic,atraumatic Neck :supple, no JVD Lungs: clear to auscultation bilaterally, no crackles no wheezes Heart: S1 and S2 irregular, no murmurs no gallops,no rubs Abdomen: soft nontender, nondistended, normal bowel sounds Extremities: edema bilateral lower ext, no clubbing or cyanosis Neuro: Awake alert oriented, hearing impaired - Constitutional Vitals: Temp Pulse Resp BP Pulse Ox 97.4 F L 89 21 127/65 94 04/28/16 00:00 04/28/16 00:00 04/28/16 00:00 04/28/16 00:00 04/28/16 00:00 Results - Labs CBC & Chem 7: 04/26/16 06:41 04/27/16 05:55 Labs: Laboratory Last Values WBC 5.1 K/mm3 (4.5-11.0) 04/26/16 06:41 RBC 6.66 M/mm3 (3.65-5.03) H 04/26/16 06:41 Hgb 14.2 gm/dl (11.8-15.2) 04/26/16 06:41 Hct 46.3 % (35.5-45.6) H 04/26/16 06:41 MCV 70 fl (84-94) L 04/26/16 06:41 MCH 21 pg (28-32) L 04/26/16 06:41 MCHC 31 % (32-34) L 04/26/16 06:41 RDW 20.1 % (13.2-15.2) H 04/26/16 06:41 Plt Count 201 K/mm3 (140-440) 04/26/16 06:41 Lymph % (Auto) 18.6 % (13.4-35.0) 04/26/16 06:41 [place] % (Auto) 9.6 % (0.0-7.3) H 04/26/16 06:41 Eos % (Auto) 0.6 % (0.0-4.3) 04/26/16 06:41 Baso % (Auto) 1.2 % (0.0-1.8) 04/26/16 06:41 Lymph # 0.9 K/mm3 (1.2-5.4) L 04/26/16 06:41 [place] # 0.5 K/mm3 (0.0-0.8) 04/26/16 06:41 Eos # 0.0 K/mm3 (0.0-0.4) 04/26/16 06:41 Baso # 0.1 K/mm3 (0.0-0.1) 04/26/16 06:41 Seg Neutrophils % 70.0 % (40.0-70.0) 04/26/16 06:41 Seg Neutrophils # 3.5 K/mm3 (1.8-7.7) 04/26/16 06:41 PT 18.2 Sec. (12.2-14.9) H 04/25/16 10:53 INR 1.51 (0.87-1.13) H 04/25/16 10:53 APTT 28.3 Sec. (24.2-36.6) 04/25/16 10:53 D-Dimer < 136 ng/mlDDU (0-234) 04/25/16 10:53 Sodium 146 mmol/L (137-145) H D 04/27/16 05:55 Potassium 3.8 mmol/L (3.6-5.0) 04/27/16 05:55 Chloride 102.5 mmol/L (98-107) 04/27/16 05:55 Carbon Dioxide 25 mmol/L (22-30) 04/27/16 05:55 Anion Gap 22 mmol/L 04/27/16 05:55 BUN 72 mg/dL (9-20) H 04/27/16 05:55 Creatinine 2.9 mg/dL (0.8-1.5) H 04/27/16 05:55 Estimated GFR 30 ml/min 04/27/16 05:55 BUN/Creatinine Ratio 24.82 % 04/27/16 05:55 Glucose 134 mg/dL (75-100) H 04/27/16 05:55 POC Glucose 74 (70-105) 04/26/16 21:39 Hemoglobin A1c 6.6 % (4-6) H 04/25/16 16:27 Calcium 8.4 mg/dL (8.4-10.2) 04/27/16 05:55 Total Bilirubin 3.0 mg/dL (0.1-1.2) H 04/26/16 06:41 AST 33 units/L (5-40) 04/26/16 06:41 ALT 60 units/L (7-56) H 04/26/16 06:41 Alkaline Phosphatase 101 units/L (35-129) 04/26/16 06:41 Total Creatine Kinase 103 units/L (55-170) 04/25/16 15:45 CK-MB (CK-2) 2.8 ng/mL (0.0-4.0) 04/25/16 15:45 CK-MB (CK-2) Rel Index 2.7 (0-4) 04/25/16 15:45 Troponin T 0.047 ng/mL (0.00-0.029) H D 04/25/16 15:45 NT-Pro-B Natriuret Pep 75877 pg/mL (0-450) H 04/25/16 10:53 Total Protein 6.3 g/dL (6.3-8.2) 04/26/16 06:41 Albumin 2.6 g/dL (3.9-5) L 04/26/16 06:41 Albumin/Globulin Ratio 0.7 % 04/26/16 06:41 Triglycerides 96 mg/dL (2-149) 04/25/16 10:53 Cholesterol 80 mg/dL (50-199) 04/25/16 10:53 LDL Cholesterol Direct 30 mg/dL (50-130) L 04/25/16 10:53 HDL Cholesterol 31 mg/dL (40-59) L 04/25/16 10:53 Cholesterol/HDL Ratio 2.58 % 04/25/16 10:53 Urine Color [place] (Yellow) 04/25/16 13:40 Urine Turbidity Cloudy (Clear) 04/25/16 13:40 Urine pH 5.0 (5.0-7.0) 04/25/16 13:40 Ur Specific [place] 1.017 (1.003-1.030) 04/25/16 13:40 Urine Protein >500 mg/dL (Negative) 04/25/16 13:40 Urine Glucose (UA) Neg mg/dL (Negative) 04/25/16 13:40 Urine Ketones Neg mg/dL (Negative) 04/25/16 13:40 Urine Blood Mod (Negative) 04/25/16 13:40 Urine Nitrite Neg (Negative) 04/25/16 13:40 Urine Bilirubin Neg (Negative) 04/25/16 13:40 Urine Urobilinogen 2.0 mg/dL (<2.0) 04/25/16 13:40 Ur Leukocyte Esterase Lg (Negative) 04/25/16 13:40 Urine WBC (Auto) > 182.0 /HPF (0.0-6.0) H 04/25/16 13:40 Urine RBC (Auto) 15.0 /HPF (0.0-6.0) 04/25/16 13:40 U Epithel Cells (Auto) 3.0 /HPF (0-13.0) 04/25/16 13:40 Urine Bacteria (Auto) 1+ /HPF (Negative) 04/25/16 13:40 Ur Transition Epith Cell 2 /HPF 04/25/16 13:40 Urine Mucus Few /HPF 04/25/16 13:40 Urine Eosinophils None seen (None Seen) 04/26/16 16:15 Urine Creatinine 102.8 mg/dL (0.1-20.0) H 04/26/16 16:15 Protein/Creatinin Ratio 1.82 04/26/16 16:15 Urine Sodium 12 mEq/L 04/26/16 16:15 Urine Total Protein 187 mg/dL (5-11.8) H 04/26/16 16:15 Urine Opiates Screen Presumptive negative 04/25/16 13:40 Urine Methadone Screen Presumptive negative 04/25/16 13:40 Ur Barbiturates Screen Presumptive negative 04/25/16 13:40 Ur Phencyclidine Scrn Presumptive negative 04/25/16 13:40 Ur Amphetamines Screen Presumptive negative 04/25/16 13:40 U Benzodiazepines Scrn Presumptive negative 04/25/16 13:40 Urine Cocaine Screen Presumptive negative 04/25/16 13:40 U Marijuana (THC) Screen Presumptive negative 04/25/16 13:40 Drugs of Abuse Note Disclamer 04/25/16 13:40
[2016-04-28] MEDS: PROVENTIL IH SCH ×4 (02:30→21:47)
[2016-04-28] MEDS: LASIX IV SCH ×2 (06:00→17:16)
[2016-04-28 07:22] LABS: BUN/Creatinine Ratio 19.35; Chloride 100.1 mmol/L (98-107); Potassium 3.3 mmol/L (3.6-5.0)
[2016-04-28] MEDS: NOVOLOG SUB-Q SCH ×4 (08:06→21:06)
[2016-04-28] MEDS: GLUCOTROL XL PO SCH (08:12)
[2016-04-28] MEDS: LOPRESSOR PO SCH ×3 (08:12→21:00)
[2016-04-28 08:37] LABS: Calcium 8.4 mg/dL (8.4-10.2)
[2016-04-28] MEDS: VITAMIN B-12 PO SCH (09:54)
[2016-04-28] MEDS: K-DUR PO SCH ×2 (09:54→12:46)
[2016-04-28] MEDS: ROCEPHIN/NS 1 GM/50 ML 1 GM/50 ML BAG IV SCH (09:55)
[2016-04-28] MEDS: PROTONIX PO SCH (09:55)
[2016-04-28] MEDS: ELIQUIS PO SCH ×2 (09:55→21:00)
[2016-04-28] MEDS: PRIMACOR 20 MG in D5W 80 ML IV SCH (10:09)
--- NOTE | 2016-04-28 10:35 | Progress Note ---
Assessment and Plan Multiple ICD therapies: Likely inappropriate due to atrial fibrillation with RVR Non Ischemic Cardiomyopathy s/p dual chamber ICD, LVEF 15-20% 02/2016 Acute on chronic systolic heart failure: NYHA III Persistent atrial fibrillation on eliquis for anticoagulation CKD Non-specific troponin elevation likely related to multiple ICD therapies and CKD. LBBB Htn S/P CVA Recommend: Medical therapy for systolic heart failure. Continue IV milrinone for aggressive diuresis Rate control and anticoagulation for persistent afib. Strict I's and O's Dietary restrictions Subjective Date of service: 04/28/16 Principal diagnosis: Acute on chronic systolic heart failure Interval history: Patient has no complaints. Lower extremity edema slowly improving. Diuresing well. Continues on IV milrinone. Objective Vital Signs Temp Pulse Pulse Pulse Pulse Pulse Resp 04/28/16 09:05 48 L 04/28/16 08:45 47 L 04/28/16 08:00 97.8 F 56 L 20 04/28/16 06:00 98 H 04/28/16 05:51 97.7 F 20 04/28/16 02:33 61 04/28/16 02:16 57 L 04/28/16 00:00 97.4 F L 89 21 04/27/16 22:10 59 L 04/27/16 22:00 64 04/27/16 21:35 90 04/27/16 20:00 97.8 F 108 H 22 04/27/16 18:16 97.6 F 55 L 18 04/27/16 13:35 98.0 F 63 18 04/27/16 11:23 52 L 04/27/16 11:14 57 L 57 L Resp Resp BP BP Pulse Ox 04/28/16 09:05 20 04/28/16 08:45 20 04/28/16 08:00 118/72 99 04/28/16 06:00 04/28/16 05:51 124/74 99 04/28/16 02:33 18 04/28/16 02:16 18 04/28/16 00:00 127/65 94 04/27/16 22:10 18 04/27/16 22:00 18 98 04/27/16 21:35 138/87 04/27/16 20:00 117/77 100 04/27/16 18:16 126/75 100 04/27/16 13:35 149/75 96 04/27/16 11:23 20 04/27/16 11:14 20 20 - Physical Examination General: No Apparent Distress HEENT: Positive: PERRL Neck: Positive: trachea midline Cardiac: Positive: irregularly irregular Lungs: Positive: Decreased Breath Sounds Extremities: Present: +3 Edema - Labs and Meds Comprehensive Metabolic Panel 04/28/16 Range/Units 05:31 Sodium 141 (137-145) mmol/L Potassium 3.3 L (3.6-5.0) mmol/L Chloride 100.1 (98-107) mmol/L Carbon Dioxide 30 (22-30) mmol/L BUN 60 H (9-20) mg/dL Creatinine 3.1 H (0.8-1.5) mg/dL Glucose 94 (75-100) mg/dL Calcium 8.4 (8.4-10.2) mg/dL - Imaging and Cardiology EKG: report reviewed AV and intraventricular conduction: left bundle branch block
[2016-04-28] MEDS: LANOXIN PO SCH (12:43)
[2016-04-28] MEDS: PERCOCET 5/325 PO PRN ×3 (12:43→23:26)
[2016-04-28] MEDS: FLONASE NS SCH (12:49)
--- NOTE | 2016-04-28 13:47 | Progress Note ---
Assessment and Plan Assessment and plan: Multiple AICD discharges. He was seen by Dr. Butler. No more AICD discharges since admitted Atrial fibrillation with rvr. Started on Milrinone drip. rate improving. Persistent afib. On Eliquis for anticoagulation Acute on chronic systolic CHF. Cont Lasix iv, Milrinone drip. Acute on Chronic kidney disease. Nephrology following.Cr 3.1. Baseline unknown but he has history of CKD. Nonischemic cardiomyopathy s/p AICD placement Hypertension. BP stable Diabetes. Check fingerstick Qac hs Morbid obesity. DVT prophylaxis. On Eliquis History of stroke. Full code status History Interval history: Patient admitted for multiple AICD firing, no chest pain, no shortness of breath Hospitalist Physical - Physical exam Narrative exam: Gen: not in acute distress, morbidly obese HEENT: normocephalic,atraumatic Neck :supple, no JVD Lungs: clear to auscultation bilaterally, no crackles no wheezes Heart: S1 and S2 irregular, no murmurs no gallops,no rubs Abdomen: soft nontender, nondistended, normal bowel sounds Extremities: edema bilateral lower ext, no clubbing or cyanosis Neuro: Awake alert oriented, hearing impaired - Constitutional Vitals: Temp Pulse Resp BP Pulse Ox 98 F 98 H 20 114/72 98 04/28/16 12:00 04/28/16 12:43 04/28/16 12:43 04/28/16 12:00 04/28/16 10:00 General appearance: Present: mild distress, well-nourished Results - Labs CBC & Chem 7: 05/01/16 10:30 05/01/16 04:51 Labs: Laboratory Last Values WBC 5.1 K/mm3 (4.5-11.0) 04/26/16 06:41 RBC 6.66 M/mm3 (3.65-5.03) H 04/26/16 06:41 Hgb 14.2 gm/dl (11.8-15.2) 04/26/16 06:41 Hct 46.3 % (35.5-45.6) H 04/26/16 06:41 MCV 70 fl (84-94) L 04/26/16 06:41 MCH 21 pg (28-32) L 04/26/16 06:41 MCHC 31 % (32-34) L 04/26/16 06:41 RDW 20.1 % (13.2-15.2) H 04/26/16 06:41 Plt Count 201 K/mm3 (140-440) 04/26/16 06:41 Lymph % (Auto) 18.6 % (13.4-35.0) 04/26/16 06:41 [place] % (Auto) 9.6 % (0.0-7.3) H 04/26/16 06:41 Eos % (Auto) 0.6 % (0.0-4.3) 04/26/16 06:41 Baso % (Auto) 1.2 % (0.0-1.8) 04/26/16 06:41 Lymph # 0.9 K/mm3 (1.2-5.4) L 04/26/16 06:41 [place] # 0.5 K/mm3 (0.0-0.8) 04/26/16 06:41 Eos # 0.0 K/mm3 (0.0-0.4) 04/26/16 06:41 Baso # 0.1 K/mm3 (0.0-0.1) 04/26/16 06:41 Seg Neutrophils % 70.0 % (40.0-70.0) 04/26/16 06:41 Seg Neutrophils # 3.5 K/mm3 (1.8-7.7) 04/26/16 06:41 PT 18.2 Sec. (12.2-14.9) H 04/25/16 10:53 INR 1.51 (0.87-1.13) H 04/25/16 10:53 APTT 28.3 Sec. (24.2-36.6) 04/25/16 10:53 D-Dimer < 136 ng/mlDDU (0-234) 04/25/16 10:53 Sodium 141 mmol/L (137-145) 04/28/16 05:31 Potassium 3.3 mmol/L (3.6-5.0) L 04/28/16 05:31 Chloride 100.1 mmol/L (98-107) 04/28/16 05:31 Carbon Dioxide 30 mmol/L (22-30) 04/28/16 05:31 Anion Gap 14 mmol/L 04/28/16 05:31 BUN 60 mg/dL (9-20) H 04/28/16 05:31 Creatinine 3.1 mg/dL (0.8-1.5) H 04/28/16 05:31 Estimated GFR 27 ml/min 04/28/16 05:31 BUN/Creatinine Ratio 19.35 % 04/28/16 05:31 Glucose 94 mg/dL (75-100) 04/28/16 05:31 POC Glucose 74 (70-105) 04/26/16 21:39 Hemoglobin A1c 6.6 % (4-6) H 04/25/16 16:27 Calcium 8.4 mg/dL (8.4-10.2) 04/28/16 05:31 Total Bilirubin 3.0 mg/dL (0.1-1.2) H 04/26/16 06:41 AST 33 units/L (5-40) 04/26/16 06:41 ALT 60 units/L (7-56) H 04/26/16 06:41 Alkaline Phosphatase 101 units/L (35-129) 04/26/16 06:41 Total Creatine Kinase 103 units/L (55-170) 04/25/16 15:45 CK-MB (CK-2) 2.8 ng/mL (0.0-4.0) 04/25/16 15:45 CK-MB (CK-2) Rel Index 2.7 (0-4) 04/25/16 15:45 Troponin T 0.047 ng/mL (0.00-0.029) H D 04/25/16 15:45 NT-Pro-B Natriuret Pep 34013 pg/mL (0-450) H 04/25/16 10:53 Total Protein 6.3 g/dL (6.3-8.2) 04/26/16 06:41 Albumin 2.6 g/dL (3.9-5) L 04/26/16 06:41 Albumin/Globulin Ratio 0.7 % 04/26/16 06:41 Triglycerides 96 mg/dL (2-149) 04/25/16 10:53 Cholesterol 80 mg/dL (50-199) 04/25/16 10:53 LDL Cholesterol Direct 30 mg/dL (50-130) L 04/25/16 10:53 HDL Cholesterol 31 mg/dL (40-59) L 04/25/16 10:53 Cholesterol/HDL Ratio 2.58 % 04/25/16 10:53 Urine Color Mylene (Yellow) 04/25/16 13:40 Urine Turbidity Cloudy (Clear) 04/25/16 13:40 Urine pH 5.0 (5.0-7.0) 04/25/16 13:40 Ur Specific Daphne 1.017 (1.003-1.030) 04/25/16 13:40 Urine Protein >500 mg/dL (Negative) 04/25/16 13:40 Urine Glucose (UA) Neg mg/dL (Negative) 04/25/16 13:40 Urine Ketones Neg mg/dL (Negative) 04/25/16 13:40 Urine Blood Mod (Negative) 04/25/16 13:40 Urine Nitrite Neg (Negative) 04/25/16 13:40 Urine Bilirubin Neg (Negative) 04/25/16 13:40 Urine Urobilinogen 2.0 mg/dL (<2.0) 04/25/16 13:40 Ur Leukocyte Esterase Lg (Negative) 04/25/16 13:40 Urine WBC (Auto) > 182.0 /HPF (0.0-6.0) H 04/25/16 13:40 Urine RBC (Auto) 15.0 /HPF (0.0-6.0) 04/25/16 13:40 U Epithel Cells (Auto) 3.0 /HPF (0-13.0) 04/25/16 13:40 Urine Bacteria (Auto) 1+ /HPF (Negative) 04/25/16 13:40 Ur Transition Epith Cell 2 /HPF 04/25/16 13:40 Urine Mucus Few /HPF 04/25/16 13:40 Urine Eosinophils None seen (None Seen) 04/26/16 16:15 Urine Creatinine 102.8 mg/dL (0.1-20.0) H 04/26/16 16:15 Protein/Creatinin Ratio 1.82 04/26/16 16:15 Urine Sodium 12 mEq/L 04/26/16 16:15 Urine Total Protein 187 mg/dL (5-11.8) H 04/26/16 16:15 Urine Opiates Screen Presumptive negative 04/25/16 13:40 Urine Methadone Screen Presumptive negative 04/25/16 13:40 Ur Barbiturates Screen Presumptive negative 04/25/16 13:40 Ur Phencyclidine Scrn Presumptive negative 04/25/16 13:40 Ur Amphetamines Screen Presumptive negative 04/25/16 13:40 U Benzodiazepines Scrn Presumptive negative 04/25/16 13:40 Urine Cocaine Screen Presumptive negative 04/25/16 13:40 U Marijuana (THC) Screen Presumptive negative 04/25/16 13:40 Drugs of Abuse Note Disclamer 04/25/16 13:40
--- NOTE | 2016-04-28 16:25 | Progress Note ---
Assessment and Plan Impression: * Acute kidney injury secondary to ?decreased effective circulatory volume vs chronic kidney disease * s/p ACID discharge * Nonischemic cardiomyopathy - LVEF 15-20% (Feb 2016) * Atrial fibrillation * Hypertension * UTI * Gout Plan: * Monitor SCr and UOP - note rise in SCr today; however, patient w/ continued edema * Milrinone gtt per cardiology * Diuesis w/ IV lasix 80mg IV q12h * Will start Prednisone 40mg daily and Colchicine 0.6mg daily for probable gout flare * Avoid nephrotoxins * Strict I/O * Fluid restriction Subjective Date of service: 04/28/16 Principal diagnosis: Acute on chronic systolic heart failure Interval history: Patient c/o pain in right foot/ankle similar to gout flare Objective - Vital Signs Vital signs: Vital Signs - 12hr 04/28/16 04/28/16 04/28/16 05:51 06:00 08:00 Temperature 97.7 F 97.8 F Pulse Rate 98 H Pulse Rate [ Anterior Bilateral Throughout] Pulse Rate [ 56 L Right Radial] Respiratory 20 20 Rate Respiratory Rate [Anterior Bilateral Throughout] Respiratory Rate [Chest] Blood Pressure 124/74 118/72 [Right Radial Artery] O2 Sat by Pulse 99 99 Oximetry 04/28/16 04/28/16 04/28/16 08:45 09:05 10:00 Temperature Pulse Rate 100 H Pulse Rate [ 47 L 48 L Anterior Bilateral Throughout] Pulse Rate [ 100 H Right Radial] Respiratory 20 Rate Respiratory 20 20 Rate [Anterior Bilateral Throughout] Respiratory 20 Rate [Chest] Blood Pressure [Right Radial Artery] O2 Sat by Pulse 98 Oximetry 04/28/16 04/28/16 12:00 12:43 Temperature 98 F Pulse Rate 98 H Pulse Rate [ Anterior Bilateral Throughout] Pulse Rate [ 58 L Right Radial] Respiratory 20 20 Rate Respiratory Rate [Anterior Bilateral Throughout] Respiratory Rate [Chest] Blood Pressure 114/72 [Right Radial Artery] O2 Sat by Pulse Oximetry - General Appearance General appearance: well-developed, well-nourished EENT: ATNC Respiratory: Present: Decreased Breath Sounds Cardiology: irregular Gastrointestinal: normal, no tenderness, no distended Integumentary: no rash, warm and dry Musculoskeletal: other (2+ edema) Psychiatric: mood/affect appropriate, cooperative - Lab 04/26/16 06:41 04/28/16 05:31 Most recent lab results Calcium 8.4 mg/dL (8.4-10.2) 04/28/16 05:31 Urine Creatinine 102.8 mg/dL (0.1-20.0) H 04/26/16 16:15 Urine Sodium 12 mEq/L 04/26/16 16:15 Urine Total Protein 187 mg/dL (5-11.8) H 04/26/16 16:15
[2016-04-28] MEDS: DELTASONE PO SCH (20:58)
[2016-04-28] MEDS: COLCRYS PO SCH (20:58)
[2016-04-28] MEDS: ZOCOR PO SCH (21:00)
[2016-04-29] MEDS ORDERED: MAGNESIUM SULFATE IV ONE (01:17)
[2016-04-29] MEDS ORDERED: MAGNESIUM SULFATE 1 GM in NACL 0.9% 50 ML IV ONE (02:00)
[2016-04-29] MEDS: PROVENTIL IH SCH ×4 (02:21→20:55)
[2016-04-29] MEDS: PRIMACOR 20 MG in D5W 80 ML IV SCH ×3 (03:37→22:32)
[2016-04-29] MEDS: LASIX IV SCH ×3 (05:59→18:13)
[2016-04-29 06:56] LABS: BUN/Creatinine Ratio 20.4; Calcium 8.5 mg/dL (8.4-10.2); Chloride 98.2 mmol/L (98-107); Potassium 4.1 mmol/L (3.6-5.0)
[2016-04-29] MEDS: NOVOLOG SUB-Q SCH ×4 (08:00→22:35)
[2016-04-29] MEDS ORDERED: MAGNESIUM SULFATE 2GM/50ML 2 GM/50 ML BAG IV ONE (10:00)
[2016-04-29] MEDS: ELIQUIS PO SCH ×2 (11:08→21:47)
[2016-04-29] MEDS: VITAMIN B-12 PO SCH (11:08)
[2016-04-29] MEDS: COLCRYS PO SCH (11:08)
[2016-04-29] MEDS: ROCEPHIN/NS 1 GM/50 ML 1 GM/50 ML BAG IV SCH (11:09)
[2016-04-29] MEDS: GLUCOTROL XL PO SCH (11:12)
[2016-04-29] MEDS: LOPRESSOR PO SCH ×3 (11:12→21:46)
[2016-04-29] MEDS: DELTASONE PO SCH (11:12)
[2016-04-29] MEDS: PROTONIX PO SCH (11:13)
[2016-04-29] MEDS: FLONASE NS SCH (11:13)
[2016-04-29] MEDS: PERCOCET 5/325 PO PRN (11:30)
--- NOTE | 2016-04-29 13:03 | Progress Note ---
Assessment and Plan - Patient Problems (1) Nonsustained ventricular tachycardia Current Visit: Yes Status: Acute Plan to address problem: On telemetry, the patient has recurrent nonsustained ventricular tachycardia. We will manage this with optimal use of beta brodie therapy. Cardiac defibrillator in situ. (2) Acute exacerbation of CHF (congestive heart failure) Current Visit: Yes Status: Acute Qualifiers: Congestive heart failure type: combined Qualified Code(s): I50.43 - Acute on chronic combined systolic (congestive) and diastolic (congestive) heart failure Plan to address problem: Medical therapy including intravenous milrinone for acute on chronic systolic heart failure. (3) Atrial fibrillation with RVR Current Visit: Yes Status: Acute Plan to address problem: Optimal rate control of atrial fibrillation with beta brodie and AV catarino blocking therapy. Subjective Date of service: 04/29/16 Principal diagnosis: Acute on chronic systolic heart failure Interval history: Patient is comfortable, in no acute distress, no new cardiac complaints. Objective Vital Signs Temp Pulse Pulse Pulse Pulse Resp Resp 04/29/16 10:00 123 H 123 H 04/29/16 09:10 87 20 04/29/16 09:00 68 20 04/29/16 08:00 97.7 F 104 H 18 04/29/16 06:05 68 18 04/29/16 05:15 97.6 F 57 L 18 04/29/16 00:49 98.2 F 54 L 18 04/29/16 00:46 108 H 04/28/16 22:01 53 L 13 04/28/16 22:00 20 04/28/16 21:48 55 L 12 04/28/16 21:00 59 L 04/28/16 20:23 97.6 F 59 L 20 04/28/16 16:30 98.2 F 57 L 20 BP BP Pulse Ox 04/29/16 10:00 04/29/16 09:10 04/29/16 09:00 04/29/16 08:00 120/85 97 04/29/16 06:05 118/72 04/29/16 05:15 110/68 96 04/29/16 00:49 124/76 98 04/29/16 00:46 04/28/16 22:01 04/28/16 22:00 04/28/16 21:48 04/28/16 21:00 111/78 04/28/16 20:23 111/78 96 04/28/16 16:30 118/68 - Physical Examination General: No Apparent Distress, Other (morbid obesity) HEENT: Positive: PERRL Neck: Positive: trachea midline Cardiac: Positive: irregularly irregular Lungs: Positive: Decreased Breath Sounds Neuro: Positive: Grossly Intact Abdomen: Positive: Soft, Active Bowel Sounds Skin: Positive: Clear Extremities: Present: +1 Edema - Labs and Meds Comprehensive Metabolic Panel 04/29/16 Range/Units 05:47 Sodium 140 (137-145) mmol/L Potassium 4.1 D (3.6-5.0) mmol/L Chloride 98.2 (98-107) mmol/L Carbon Dioxide 28 (22-30) mmol/L BUN 51 H (9-20) mg/dL Creatinine 2.5 H (0.8-1.5) mg/dL Glucose 160 H (75-100) mg/dL Calcium 8.5 (8.4-10.2) mg/dL - Imaging and Cardiology EKG: report reviewed AV and intraventricular conduction: left bundle branch block
--- NOTE | 2016-04-29 15:10 | Progress Note ---
Assessment and Plan Impression: * Acute kidney injury secondary to ?decreased effective circulatory volume vs chronic kidney disease * s/p ACID discharge * Nonischemic cardiomyopathy - LVEF 15-20% (Feb 2016) * Atrial fibrillation * Hypertension * UTI * Gout Plan: * Monitor SCr and UOP - need strict FADY * Serum creatinine noted to be improving * Milrinone gtt per cardiology * Diuesis w/ IV lasix 80mg IV q12h * Continue Prednisone 40mg daily and Colchicine 0.6mg daily for probable gout flare * Check uric acid level * Avoid nephrotoxins * Strict I/O * Fluid restriction Subjective Date of service: 04/29/16 Principal diagnosis: Acute on chronic systolic heart failure Interval history: Patient denies any shortness of breath. He continues to have some leg swelling. He also complains of some irritation in his right ankle area Objective - Vital Signs Vital signs: Vital Signs - 12hr 04/29/16 04/29/16 04/29/16 05:15 06:05 08:00 Temperature 97.6 F 97.7 F Pulse Rate Pulse Rate [ Anterior Bilateral Throughout] Pulse Rate [ 68 104 H Left From Monitor] Pulse Rate [ 57 L Right Radial] Respiratory 18 18 18 Rate Respiratory Rate [Anterior Bilateral Throughout] Blood Pressure 110/68 118/72 120/85 [Right Radial Artery] O2 Sat by Pulse 96 97 Oximetry 04/29/16 04/29/16 04/29/16 09:00 09:10 10:00 Temperature Pulse Rate 123 H Pulse Rate [ 68 87 Anterior Bilateral Throughout] Pulse Rate [ 123 H Left From Monitor] Pulse Rate [ Right Radial] Respiratory Rate Respiratory 20 20 Rate [Anterior Bilateral Throughout] Blood Pressure [Right Radial Artery] O2 Sat by Pulse Oximetry - General Appearance General appearance: well-developed, well-nourished, appears stated age EENT: PERRL, mucous membranes moist Neck: no JVD, no thyromegaly, no carotid bruit, supple Respiratory: Present: Clear to Ascultation Cardiology: regular, normal heart rate, S1S2, no murmurs Gastrointestinal: normal, normoactive bowel sounds Integumentary: other (1-2+ edema) - Lab 04/26/16 06:41 04/29/16 05:47 Most recent lab results Calcium 8.5 mg/dL (8.4-10.2) 04/29/16 05:47 Magnesium 1.6 mg/dL (1.7-2.3) L 04/29/16 00:33 Urine Creatinine 102.8 mg/dL (0.1-20.0) H 04/26/16 16:15 Urine Sodium 12 mEq/L 04/26/16 16:15 Urine Total Protein 187 mg/dL (5-11.8) H 04/26/16 16:15
--- NOTE | 2016-04-29 19:02 | Progress Note ---
Assessment and Plan Assessment and plan: Multiple AICD discharges. He was seen by Dr. Butler. No more AICD discharges since admitted Atrial fibrillation with rvr. Continue Milrinone drip. rate improving. Persistent afib. On Eliquis for anticoagulation Non sustained v tach. multiple episodes. Start Metoprolol Acute on chronic systolic CHF. Cont Lasix iv, Milrinone drip. Acute on Chronic kidney disease. Nephrology following.Cr 3.1. Baseline unknown but he has history of CKD. Nonischemic cardiomyopathy s/p AICD placement Hypertension. BP stable Diabetes. Check fingerstick Qac hs Morbid obesity. DVT prophylaxis. On Eliquis History of stroke. Hearing impaired Full code status History Interval history: Patient admitted for multiple AICD firing, no chest pain, no shortness of breath, leg edema Hospitalist Physical - Physical exam Narrative exam: Gen: not in acute distress, morbidly obese HEENT: normocephalic,atraumatic Neck :supple, no JVD Lungs: clear to auscultation bilaterally, no crackles no wheezes Heart: S1 and S2 irregularly irregular, no murmurs no gallops,no rubs Abdomen: soft nontender, nondistended, normal bowel sounds Extremities: edema bilateral lower ext, no clubbing or cyanosis Neuro: Awake alert oriented, hearing impaired - Constitutional Vitals: Temp Pulse Resp BP Pulse Ox 97.7 F 123 H 20 120/85 97 04/29/16 08:00 04/29/16 10:00 04/29/16 09:10 04/29/16 08:00 04/29/16 08:00 General appearance: Present: mild distress Results - Labs CBC & Chem 7: 05/01/16 10:30 05/01/16 04:51 Labs: Laboratory Last Values WBC 5.1 K/mm3 (4.5-11.0) 04/26/16 06:41 RBC 6.66 M/mm3 (3.65-5.03) H 04/26/16 06:41 Hgb 14.2 gm/dl (11.8-15.2) 04/26/16 06:41 Hct 46.3 % (35.5-45.6) H 04/26/16 06:41 MCV 70 fl (84-94) L 04/26/16 06:41 MCH 21 pg (28-32) L 04/26/16 06:41 MCHC 31 % (32-34) L 04/26/16 06:41 RDW 20.1 % (13.2-15.2) H 04/26/16 06:41 Plt Count 201 K/mm3 (140-440) 04/26/16 06:41 Lymph % (Auto) 18.6 % (13.4-35.0) 04/26/16 06:41 [place] % (Auto) 9.6 % (0.0-7.3) H 04/26/16 06:41 Eos % (Auto) 0.6 % (0.0-4.3) 04/26/16 06:41 Baso % (Auto) 1.2 % (0.0-1.8) 04/26/16 06:41 Lymph # 0.9 K/mm3 (1.2-5.4) L 04/26/16 06:41 [place] # 0.5 K/mm3 (0.0-0.8) 04/26/16 06:41 Eos # 0.0 K/mm3 (0.0-0.4) 04/26/16 06:41 Baso # 0.1 K/mm3 (0.0-0.1) 04/26/16 06:41 Seg Neutrophils % 70.0 % (40.0-70.0) 04/26/16 06:41 Seg Neutrophils # 3.5 K/mm3 (1.8-7.7) 04/26/16 06:41 PT 18.2 Sec. (12.2-14.9) H 04/25/16 10:53 INR 1.51 (0.87-1.13) H 04/25/16 10:53 APTT 28.3 Sec. (24.2-36.6) 04/25/16 10:53 D-Dimer < 136 ng/mlDDU (0-234) 04/25/16 10:53 Sodium 140 mmol/L (137-145) 04/29/16 05:47 Potassium 4.1 mmol/L (3.6-5.0) D 04/29/16 05:47 Chloride 98.2 mmol/L (98-107) 04/29/16 05:47 Carbon Dioxide 28 mmol/L (22-30) 04/29/16 05:47 Anion Gap 18 mmol/L 04/29/16 05:47 BUN 51 mg/dL (9-20) H 04/29/16 05:47 Creatinine 2.5 mg/dL (0.8-1.5) H 04/29/16 05:47 Estimated GFR 35 ml/min 04/29/16 05:47 BUN/Creatinine Ratio 20.40 % 04/29/16 05:47 Glucose 160 mg/dL (75-100) H 04/29/16 05:47 POC Glucose 74 (70-105) 04/26/16 21:39 Hemoglobin A1c 6.6 % (4-6) H 04/25/16 16:27 Calcium 8.5 mg/dL (8.4-10.2) 04/29/16 05:47 Magnesium 1.6 mg/dL (1.7-2.3) L 04/29/16 00:33 Total Bilirubin 3.0 mg/dL (0.1-1.2) H 04/26/16 06:41 AST 33 units/L (5-40) 04/26/16 06:41 ALT 60 units/L (7-56) H 04/26/16 06:41 Alkaline Phosphatase 101 units/L (35-129) 04/26/16 06:41 Total Creatine Kinase 103 units/L (55-170) 04/25/16 15:45 CK-MB (CK-2) 2.8 ng/mL (0.0-4.0) 04/25/16 15:45 CK-MB (CK-2) Rel Index 2.7 (0-4) 04/25/16 15:45 Troponin T 0.047 ng/mL (0.00-0.029) H D 04/25/16 15:45 NT-Pro-B Natriuret Pep 43002 pg/mL (0-450) H 04/25/16 10:53 Total Protein 6.3 g/dL (6.3-8.2) 04/26/16 06:41 Albumin 2.6 g/dL (3.9-5) L 04/26/16 06:41 Albumin/Globulin Ratio 0.7 % 04/26/16 06:41 Triglycerides 96 mg/dL (2-149) 04/25/16 10:53 Cholesterol 80 mg/dL (50-199) 04/25/16 10:53 LDL Cholesterol Direct 30 mg/dL (50-130) L 04/25/16 10:53 HDL Cholesterol 31 mg/dL (40-59) L 04/25/16 10:53 Cholesterol/HDL Ratio 2.58 % 04/25/16 10:53 Urine Color Mylene (Yellow) 04/25/16 13:40 Urine Turbidity Cloudy (Clear) 04/25/16 13:40 Urine pH 5.0 (5.0-7.0) 04/25/16 13:40 Ur Specific [place] 1.017 (1.003-1.030) 04/25/16 13:40 Urine Protein >500 mg/dL (Negative) 04/25/16 13:40 Urine Glucose (UA) Neg mg/dL (Negative) 04/25/16 13:40 Urine Ketones Neg mg/dL (Negative) 04/25/16 13:40 Urine Blood Mod (Negative) 04/25/16 13:40 Urine Nitrite Neg (Negative) 04/25/16 13:40 Urine Bilirubin Neg (Negative) 04/25/16 13:40 Urine Urobilinogen 2.0 mg/dL (<2.0) 04/25/16 13:40 Ur Leukocyte Esterase Lg (Negative) 04/25/16 13:40 Urine WBC (Auto) > 182.0 /HPF (0.0-6.0) H 04/25/16 13:40 Urine RBC (Auto) 15.0 /HPF (0.0-6.0) 04/25/16 13:40 U Epithel Cells (Auto) 3.0 /HPF (0-13.0) 04/25/16 13:40 Urine Bacteria (Auto) 1+ /HPF (Negative) 04/25/16 13:40 Ur Transition Epith Cell 2 /HPF 04/25/16 13:40 Urine Mucus Few /HPF 04/25/16 13:40 Urine Eosinophils None seen (None Seen) 04/26/16 16:15 Urine Creatinine 102.8 mg/dL (0.1-20.0) H 04/26/16 16:15 Protein/Creatinin Ratio 1.82 04/26/16 16:15 Urine Sodium 12 mEq/L 04/26/16 16:15 Urine Total Protein 187 mg/dL (5-11.8) H 04/26/16 16:15 Urine Opiates Screen Presumptive negative 04/25/16 13:40 Urine Methadone Screen Presumptive negative 04/25/16 13:40 Ur Barbiturates Screen Presumptive negative 04/25/16 13:40 Ur Phencyclidine Scrn Presumptive negative 04/25/16 13:40 Ur Amphetamines Screen Presumptive negative 04/25/16 13:40 U Benzodiazepines Scrn Presumptive negative 04/25/16 13:40 Urine Cocaine Screen Presumptive negative 04/25/16 13:40 U Marijuana (THC) Screen Presumptive negative 04/25/16 13:40 Drugs of Abuse Note Disclamer 04/25/16 13:40
[2016-04-29] MEDS: ZOCOR PO SCH (21:46)
[2016-04-30] MEDS: PROVENTIL IH SCH ×4 (03:34→20:45)
[2016-04-30 07:35] LABS: BUN/Creatinine Ratio 18.4; Calcium 8.5 mg/dL (8.4-10.2); Potassium 3.9 mmol/L (3.6-5.0); Uric Acid 15.4 mg/dL (3.5-7.6)
[2016-04-30] MEDS: LASIX IV SCH ×2 (07:36→17:41)
[2016-04-30] MEDS: ROCEPHIN/NS 1 GM/50 ML 1 GM/50 ML BAG IV SCH (10:30)
[2016-04-30] MEDS: LOPRESSOR PO SCH ×3 (10:31→22:03)
[2016-04-30] MEDS: COLCRYS PO SCH (10:31)
[2016-04-30] MEDS: GLUCOTROL XL PO SCH (10:31)
[2016-04-30] MEDS: PROTONIX PO SCH (10:31)
[2016-04-30] MEDS: ELIQUIS PO SCH ×2 (10:31→22:03)
[2016-04-30] MEDS: PRIMACOR 20 MG in D5W 80 ML IV SCH (10:32)
[2016-04-30] MEDS: NOVOLOG SUB-Q SCH ×3 (10:32→17:40)
[2016-04-30] MEDS: DELTASONE PO SCH (10:32)
[2016-04-30] MEDS: VITAMIN B-12 PO SCH (10:32)
[2016-04-30] MEDS: FLONASE NS SCH (10:33)
[2016-04-30 11:07] LABS: Hematocrit 42.4 % (35.5-45.6); Hemoglobin 13.2 gm/dl (11.8-15.2)
--- NOTE | 2016-04-30 12:38 | Progress Note ---
Assessment and Plan Impression: * Acute kidney injury secondary to ?decreased effective circulatory volume vs chronic kidney disease * s/p ACID discharge * Nonischemic cardiomyopathy - LVEF 15-20% (Feb 2016) * Atrial fibrillation * Hypertension * UTI * Gout Plan: * Monitor SCr and UOP - need strict FADY * Serum creatinine noted to be improving * Milrinone gtt per cardiology * Diuesis w/ IV lasix 80mg IV q12h * Patient noted to have a high uric acid level Continue Prednisone 40mg daily and Colchicine 0.6mg daily for probable gout flare * Shall plan to add allopurinol after his gout flareup resolves. Hold off on adding a thiazide diuretic at this time * Avoid nephrotoxins * Strict I/O * Fluid restriction Subjective Date of service: 04/30/16 Principal diagnosis: Acute on chronic systolic heart failure Interval history: Patient denies any shortness of breath. He continues to have some leg swelling. Objective - Vital Signs Vital signs: Vital Signs - 12hr 04/30/16 04/30/16 04/30/16 01:05 01:44 05:37 Temperature 97.8 F 98.7 F Pulse Rate 111 H Pulse Rate [ Anterior Bilateral Throughout] Pulse Rate [ 84 52 L Left From Monitor] Respiratory 20 20 Rate Respiratory Rate [Anterior Bilateral Throughout] Blood Pressure 92/75 98/77 [Right Radial Artery] O2 Sat by Pulse 97 97 Oximetry 04/30/16 04/30/16 04/30/16 08:00 08:37 12:00 Temperature 97.6 F 98.4 F Pulse Rate Pulse Rate [ 51 L 49 L Anterior Bilateral Throughout] Pulse Rate [ 111 H 62 Left From Monitor] Respiratory 20 20 Rate Respiratory 20 20 Rate [Anterior Bilateral Throughout] Blood Pressure 106/89 106/88 [Right Radial Artery] O2 Sat by Pulse 98 Oximetry - General Appearance General appearance: well-developed, well-nourished, appears stated age EENT: PERRL, mucous membranes moist Neck: no JVD, no thyromegaly, no carotid bruit, supple Respiratory: Present: Clear to Ascultation Cardiology: regular, normal heart rate, S1S2, no murmurs Gastrointestinal: normal, normoactive bowel sounds Integumentary: other (2+ edema) - Lab 04/30/16 10:55 04/30/16 06:36 Most recent lab results Calcium 8.5 mg/dL (8.4-10.2) 04/30/16 06:36 Magnesium 1.9 mg/dL (1.7-2.3) 04/30/16 10:55 Urine Creatinine 102.8 mg/dL (0.1-20.0) H 04/26/16 16:15 Urine Sodium 12 mEq/L 04/26/16 16:15 Urine Total Protein 187 mg/dL (5-11.8) H 04/26/16 16:15
[2016-04-30] MEDS: LANOXIN PO SCH (13:01)
--- NOTE | 2016-04-30 14:25 | Progress Note ---
Assessment and Plan - Patient Problems (1) Nonsustained ventricular tachycardia Current Visit: Yes Status: Acute Plan to address problem: On telemetry, the patient has recurrent nonsustained ventricular tachycardia. We will manage this with optimal use of beta brodie therapy. Cardiac defibrillator in situ. (2) Acute exacerbation of CHF (congestive heart failure) Current Visit: Yes Status: Acute Qualifiers: Congestive heart failure type: combined Qualified Code(s): I50.43 - Acute on chronic combined systolic (congestive) and diastolic (congestive) heart failure Plan to address problem: We will stop milrinone and continue oral medical therapy for acute on chronic systolic heart failure. (3) Atrial fibrillation with RVR Current Visit: Yes Status: Acute Plan to address problem: Rate control of atrial fibrillation has improved with enhancement of beta brodie therapy. Subjective Date of service: 04/30/16 Principal diagnosis: Acute on chronic systolic heart failure Interval history: Patient is comfortable, in no acute distress, no new cardiac complaints. Objective Vital Signs Temp Pulse Pulse Pulse Pulse Resp Resp 04/30/16 13:55 55 L 16 04/30/16 13:37 53 L 16 04/30/16 13:01 113 H 04/30/16 12:00 98.4 F 62 20 04/30/16 08:37 49 L 20 04/30/16 08:00 97.6 F 51 L 111 H 20 20 04/30/16 05:37 98.7 F 52 L 20 04/30/16 01:44 111 H 04/30/16 01:05 97.8 F 84 20 04/29/16 21:46 111 H 04/29/16 21:31 98.2 F 111 H 20 04/29/16 20:55 60 20 04/29/16 19:23 98.2 F 77 18 BP BP Pulse Ox 04/30/16 13:55 04/30/16 13:37 04/30/16 13:01 04/30/16 12:00 106/88 04/30/16 08:37 04/30/16 08:00 106/89 98 04/30/16 05:37 98/77 97 04/30/16 01:44 04/30/16 01:05 92/75 97 04/29/16 21:46 104/77 04/29/16 21:31 104/77 98 04/29/16 20:55 04/29/16 19:23 136/65 95 - Physical Examination General: No Apparent Distress, Other (morbid obesity) HEENT: Positive: PERRL Neck: Positive: trachea midline Cardiac: Positive: irregularly irregular Lungs: Positive: Decreased Breath Sounds Neuro: Positive: Grossly Intact Abdomen: Positive: Soft, Active Bowel Sounds Skin: Positive: Clear Extremities: Present: +1 Edema - Labs and Meds CBC 04/30/16 Range/Units 10:55 Hgb 13.2 (11.8-15.2) gm/dl Hct 42.4 (35.5-45.6) % Comprehensive Metabolic Panel 04/30/16 Range/Units 06:36 Sodium 141 (137-145) mmol/L Potassium 3.9 (3.6-5.0) mmol/L Chloride 97.0 L (98-107) mmol/L Carbon Dioxide 31 H (22-30) mmol/L BUN 46 H (9-20) mg/dL Creatinine 2.5 H (0.8-1.5) mg/dL Glucose 121 H (75-100) mg/dL Calcium 8.5 (8.4-10.2) mg/dL - Imaging and Cardiology EKG: report reviewed AV and intraventricular conduction: left bundle branch block
--- NOTE | 2016-04-30 15:51 | Progress Note ---
Assessment and Plan Assessment and plan: Multiple AICD discharges. He was seen by Dr. Butler. No more AICD discharges since admitted Atrial fibrillation with rvr. Milrinone discontinued Persistent afib. On Eliquis for anticoagulation Non sustained v tach. multiple episodes. Still having vtach. Increase dose of Metoprolol Acute on chronic systolic CHF. Cont Lasix iv, Milrinone drip discontinued Acute vs Acute on chronic kidney disease. Cr 2.5. improving Nephrology following.. Nonischemic cardiomyopathy s/p AICD placement Hypertension. BP stable Diabetes. Check fingerstick Qac hs Morbid obesity. DVT prophylaxis. On Eliquis History of stroke. Hearing impaired Full code status History Interval history: Patient admitted for multiple AICD firing, no chest pain, no shortness of breath, leg edema improved One episode of small amount red blood in stool Hospitalist Physical - Physical exam Narrative exam: Gen: not in acute distress, morbidly obese HEENT: normocephalic,atraumatic Neck :supple, no JVD Lungs: clear to auscultation bilaterally, no crackles no wheezes Heart: S1 and S2 irregularly irregular, no murmurs no gallops,no rubs Abdomen: soft nontender, nondistended, normal bowel sounds Extremities: less edema bilateral lower ext, no clubbing or cyanosis Neuro: Awake alert oriented, hearing impaired - Constitutional Vitals: Temp Pulse Resp BP Pulse Ox 98.4 F 55 L 16 106/88 98 04/30/16 12:00 04/30/16 13:55 04/30/16 13:55 04/30/16 12:00 04/30/16 08:00 General appearance: Present: mild distress, well-nourished Results - Labs CBC & Chem 7: 05/01/16 10:30 05/02/16 05:38 Labs: Laboratory Last Values WBC 5.1 K/mm3 (4.5-11.0) 04/26/16 06:41 RBC 6.66 M/mm3 (3.65-5.03) H 04/26/16 06:41 Hgb 13.2 gm/dl (11.8-15.2) 04/30/16 10:55 Hct 42.4 % (35.5-45.6) 04/30/16 10:55 MCV 70 fl (84-94) L 04/26/16 06:41 MCH 21 pg (28-32) L 04/26/16 06:41 MCHC 31 % (32-34) L 04/26/16 06:41 RDW 20.1 % (13.2-15.2) H 04/26/16 06:41 Plt Count 201 K/mm3 (140-440) 04/26/16 06:41 Lymph % (Auto) 18.6 % (13.4-35.0) 04/26/16 06:41 [place] % (Auto) 9.6 % (0.0-7.3) H 04/26/16 06:41 Eos % (Auto) 0.6 % (0.0-4.3) 04/26/16 06:41 Baso % (Auto) 1.2 % (0.0-1.8) 04/26/16 06:41 Lymph # 0.9 K/mm3 (1.2-5.4) L 04/26/16 06:41 [place] # 0.5 K/mm3 (0.0-0.8) 04/26/16 06:41 Eos # 0.0 K/mm3 (0.0-0.4) 04/26/16 06:41 Baso # 0.1 K/mm3 (0.0-0.1) 04/26/16 06:41 Seg Neutrophils % 70.0 % (40.0-70.0) 04/26/16 06:41 Seg Neutrophils # 3.5 K/mm3 (1.8-7.7) 04/26/16 06:41 PT 18.2 Sec. (12.2-14.9) H 04/25/16 10:53 INR 1.51 (0.87-1.13) H 04/25/16 10:53 APTT 28.3 Sec. (24.2-36.6) 04/25/16 10:53 D-Dimer < 136 ng/mlDDU (0-234) 04/25/16 10:53 Sodium 141 mmol/L (137-145) 04/30/16 06:36 Potassium 3.9 mmol/L (3.6-5.0) 04/30/16 06:36 Chloride 97.0 mmol/L (98-107) L 04/30/16 06:36 Carbon Dioxide 31 mmol/L (22-30) H 04/30/16 06:36 Anion Gap 17 mmol/L 04/30/16 06:36 BUN 46 mg/dL (9-20) H 04/30/16 06:36 Creatinine 2.5 mg/dL (0.8-1.5) H 04/30/16 06:36 Estimated GFR 35 ml/min 04/30/16 06:36 BUN/Creatinine Ratio 18.40 % 04/30/16 06:36 Glucose 121 mg/dL (75-100) H 04/30/16 06:36 POC Glucose 74 (70-105) 04/26/16 21:39 Hemoglobin A1c 6.6 % (4-6) H 04/25/16 16:27 Uric Acid 15.4 mg/dL (3.5-7.6) H 04/30/16 06:36 Calcium 8.5 mg/dL (8.4-10.2) 04/30/16 06:36 Magnesium 1.9 mg/dL (1.7-2.3) 04/30/16 10:55 Total Bilirubin 3.0 mg/dL (0.1-1.2) H 04/26/16 06:41 AST 33 units/L (5-40) 04/26/16 06:41 ALT 60 units/L (7-56) H 04/26/16 06:41 Alkaline Phosphatase 101 units/L (35-129) 04/26/16 06:41 Total Creatine Kinase 103 units/L (55-170) 04/25/16 15:45 CK-MB (CK-2) 2.8 ng/mL (0.0-4.0) 04/25/16 15:45 CK-MB (CK-2) Rel Index 2.7 (0-4) 04/25/16 15:45 Troponin T 0.047 ng/mL (0.00-0.029) H D 04/25/16 15:45 NT-Pro-B Natriuret Pep 53279 pg/mL (0-450) H 04/25/16 10:53 Total Protein 6.3 g/dL (6.3-8.2) 04/26/16 06:41 Albumin 2.6 g/dL (3.9-5) L 04/26/16 06:41 Albumin/Globulin Ratio 0.7 % 04/26/16 06:41 Triglycerides 96 mg/dL (2-149) 04/25/16 10:53 Cholesterol 80 mg/dL (50-199) 04/25/16 10:53 LDL Cholesterol Direct 30 mg/dL (50-130) L 04/25/16 10:53 HDL Cholesterol 31 mg/dL (40-59) L 04/25/16 10:53 Cholesterol/HDL Ratio 2.58 % 04/25/16 10:53 Urine Color Mylene (Yellow) 04/25/16 13:40 Urine Turbidity Cloudy (Clear) 04/25/16 13:40 Urine pH 5.0 (5.0-7.0) 04/25/16 13:40 Ur Specific [place] 1.017 (1.003-1.030) 04/25/16 13:40 Urine Protein >500 mg/dL (Negative) 04/25/16 13:40 Urine Glucose (UA) Neg mg/dL (Negative) 04/25/16 13:40 Urine Ketones Neg mg/dL (Negative) 04/25/16 13:40 Urine Blood Mod (Negative) 04/25/16 13:40 Urine Nitrite Neg (Negative) 04/25/16 13:40 Urine Bilirubin Neg (Negative) 04/25/16 13:40 Urine Urobilinogen 2.0 mg/dL (<2.0) 04/25/16 13:40 Ur Leukocyte Esterase Lg (Negative) 04/25/16 13:40 Urine WBC (Auto) > 182.0 /HPF (0.0-6.0) H 04/25/16 13:40 Urine RBC (Auto) 15.0 /HPF (0.0-6.0) 04/25/16 13:40 U Epithel Cells (Auto) 3.0 /HPF (0-13.0) 04/25/16 13:40 Urine Bacteria (Auto) 1+ /HPF (Negative) 04/25/16 13:40 Ur Transition Epith Cell 2 /HPF 04/25/16 13:40 Urine Mucus Few /HPF 04/25/16 13:40 Urine Eosinophils None seen (None Seen) 04/26/16 16:15 Urine Creatinine 102.8 mg/dL (0.1-20.0) H 04/26/16 16:15 Protein/Creatinin Ratio 1.82 04/26/16 16:15 Urine Sodium 12 mEq/L 04/26/16 16:15 Urine Total Protein 187 mg/dL (5-11.8) H 04/26/16 16:15 Urine Opiates Screen Presumptive negative 04/25/16 13:40 Urine Methadone Screen Presumptive negative 04/25/16 13:40 Ur Barbiturates Screen Presumptive negative 04/25/16 13:40 Ur Phencyclidine Scrn Presumptive negative 04/25/16 13:40 Ur Amphetamines Screen Presumptive negative 04/25/16 13:40 U Benzodiazepines Scrn Presumptive negative 04/25/16 13:40 Urine Cocaine Screen Presumptive negative 04/25/16 13:40 U Marijuana (THC) Screen Presumptive negative 04/25/16 13:40 Drugs of Abuse Note Disclamer 04/25/16 13:40
[2016-04-30 17:02] LABS: Hematocrit 42.9 % (35.5-45.6); Hemoglobin 13.3 gm/dl (11.8-15.2)
[2016-04-30] MEDS: ZOCOR PO SCH (22:03)
[2016-04-30 22:42] LABS: Hematocrit 40.4 % (35.5-45.6); Hemoglobin 12.6 gm/dl (11.8-15.2)
[2016-05-01] MEDS: PROVENTIL IH SCH ×4 (01:43→20:06)
[2016-05-01] MEDS: NOVOLOG SUB-Q SCH ×5 (04:00→23:07)
[2016-05-01] MEDS: ZOFRAN IV PRN (04:01)
[2016-05-01 05:50] LABS: Hematocrit 44.9 % (35.5-45.6); Hemoglobin 13.8 gm/dl (11.8-15.2)
[2016-05-01 05:53] LABS: BUN/Creatinine Ratio 19.13; Chloride 95.2 mmol/L (98-107); Potassium 4.6 mmol/L (3.6-5.0)
[2016-05-01] MEDS: LASIX IV SCH ×2 (06:23→18:37)
[2016-05-01] MEDS: LOPRESSOR PO SCH ×3 (07:52→22:41)
[2016-05-01] MEDS: GLUCOTROL XL PO SCH (07:53)
[2016-05-01] MEDS: DELTASONE PO SCH (09:22)
[2016-05-01] MEDS: COLCRYS PO SCH (09:22)
[2016-05-01] MEDS: PROTONIX PO SCH (09:22)
[2016-05-01] MEDS: VITAMIN B-12 PO SCH (09:22)
[2016-05-01] MEDS: ELIQUIS PO SCH ×2 (09:22→22:43)
[2016-05-01] MEDS: ROCEPHIN/NS 1 GM/50 ML 1 GM/50 ML BAG IV SCH (09:23)
[2016-05-01] MEDS: FLONASE NS SCH (09:27)
[2016-05-01 10:52] LABS: Hematocrit 45.6 % (35.5-45.6); Hemoglobin 14.1 gm/dl (11.8-15.2)
--- NOTE | 2016-05-01 10:52 | Progress Note ---
Assessment and Plan Impression: * Acute kidney injury secondary to ?decreased effective circulatory volume vs chronic kidney disease * s/p ACID discharge * Nonischemic cardiomyopathy - LVEF 15-20% (Feb 2016) * Atrial fibrillation * Hypertension * UTI * Gout Plan: * Monitor SCr and UOP - need strict FADY * Serum creatinine noted to be improving * Milrinone gtt per cardiology * Diuesis w/ IV lasix 80mg IV q12h * Patient noted to have a high uric acid level Continue Prednisone 40mg daily and Colchicine 0.6mg daily for probable gout flare * Shall plan to add allopurinol after his gout flareup resolves. Hold off on adding a thiazide diuretic at this time * Avoid nephrotoxins * Strict I/O * Fluid restriction Subjective Date of service: 05/01/16 Principal diagnosis: Acute on chronic systolic heart failure Interval history: Patient denies any shortness of breath. He continues to have some leg swelling. Objective - Vital Signs Vital signs: Vital Signs - 12hr 05/01/16 05/01/16 05/01/16 00:45 01:37 01:47 Temperature 98.7 F Pulse Rate Pulse Rate [ 99 H 97 H Anterior Bilateral Throughout] Pulse Rate [ 63 Right Radial] Respiratory 20 Rate Respiratory 18 20 Rate [Anterior Bilateral Throughout] Blood Pressure 97/69 [Right Radial Artery] O2 Sat by Pulse 97 Oximetry 05/01/16 05/01/16 05/01/16 02:57 04:30 07:00 Temperature 97.4 F L 97.7 F Pulse Rate 108 H Pulse Rate [ Anterior Bilateral Throughout] Pulse Rate [ 56 L 53 L Right Radial] Respiratory 20 18 Rate Respiratory Rate [Anterior Bilateral Throughout] Blood Pressure 114/73 120/70 [Right Radial Artery] O2 Sat by Pulse 100 97 Oximetry 05/01/16 05/01/16 05/01/16 08:51 09:00 10:00 Temperature Pulse Rate 95 H Pulse Rate [ 57 L 60 Anterior Bilateral Throughout] Pulse Rate [ Right Radial] Respiratory Rate Respiratory 20 20 Rate [Anterior Bilateral Throughout] Blood Pressure [Right Radial Artery] O2 Sat by Pulse Oximetry - General Appearance General appearance: well-developed, well-nourished, appears stated age EENT: PERRL, mucous membranes moist Neck: no JVD, no thyromegaly, no carotid bruit, supple Respiratory: Present: Clear to Ascultation Cardiology: regular, normal heart rate, S1S2, no murmurs Gastrointestinal: normal, normoactive bowel sounds Integumentary: no rash, other (2+ edema) - Lab 05/01/16 10:30 05/01/16 04:51 Most recent lab results Calcium 9.0 mg/dL (8.4-10.2) 05/01/16 04:51 Magnesium 1.9 mg/dL (1.7-2.3) 04/30/16 10:55 Urine Creatinine 102.8 mg/dL (0.1-20.0) H 04/26/16 16:15 Urine Sodium 12 mEq/L 04/26/16 16:15 Urine Total Protein 187 mg/dL (5-11.8) H 04/26/16 16:15
--- NOTE | 2016-05-01 16:43 | Progress Note ---
Assessment and Plan Multiple ICD therapies: Likely inappropriate due to atrial fibrillation with RVR Non Ischemic Cardiomyopathy s/p dual chamber ICD, LVEF 15-20% 02/2016 Acute on chronic systolic heart failure: NYHA III Persistent atrial fibrillation on eliquis for anticoagulation CKD Non-specific troponin elevation likely related to multiple ICD therapies and CKD. LBBB Htn S/P CVA Recommend: Medical therapy for systolic heart failure. Rate control and anticoagulation for persistent afib. In addition, will add amiodarone loading with 400mg for 2 days then 200mg twice a day. Strict I's and O's Dietary restrictions Subjective Date of service: 05/01/16 Principal diagnosis: Acute on chronic systolic heart failure Interval history: Frequent ectopy on telemetry. Patient remains asymptomatic. LE edema continues to improve. Objective Vital Signs Temp Pulse Pulse Pulse Resp Resp BP 05/01/16 16:25 98 F 113 H 16 05/01/16 14:45 72 20 05/01/16 14:35 52 L 20 05/01/16 12:45 98 F 102 H 20 05/01/16 10:00 95 H 05/01/16 09:00 60 20 05/01/16 08:51 57 L 20 05/01/16 07:00 97.7 F 53 L 18 05/01/16 04:30 97.4 F L 56 L 20 05/01/16 02:57 108 H 05/01/16 01:47 97 H 20 05/01/16 01:37 99 H 18 05/01/16 00:45 98.7 F 63 20 04/30/16 22:03 108 H 105/79 04/30/16 20:55 108 H 20 04/30/16 20:45 117 H 20 04/30/16 20:40 98.8 F 66 16 BP Pulse Ox 05/01/16 16:25 121/76 98 05/01/16 14:45 05/01/16 14:35 05/01/16 12:45 132/84 98 05/01/16 10:00 05/01/16 09:00 05/01/16 08:51 05/01/16 07:00 120/70 97 05/01/16 04:30 114/73 100 05/01/16 02:57 05/01/16 01:47 05/01/16 01:37 05/01/16 00:45 97/69 97 04/30/16 22:03 04/30/16 20:55 04/30/16 20:45 04/30/16 20:40 105/79 98 - Physical Examination General: No Apparent Distress HEENT: Positive: PERRL Neck: Positive: trachea midline Cardiac: Positive: irregularly irregular Lungs: Positive: Decreased Breath Sounds Neuro: Positive: Grossly Intact Extremities: Present: +1 Edema - Labs and Meds CBC 04/30/16 04/30/16 05/01/16 Range/Units 16:21 22:02 04:51 Hgb 13.3 12.6 13.8 (11.8-15.2) gm/dl Hct 42.9 40.4 44.9 (35.5-45.6) % 05/01/16 Range/Units 10:30 Hgb 14.1 (11.8-15.2) gm/dl Hct 45.6 (35.5-45.6) % Comprehensive Metabolic Panel 05/01/16 Range/Units 04:51 Sodium 141 (137-145) mmol/L Potassium 4.6 (3.6-5.0) mmol/L Chloride 95.2 L (98-107) mmol/L Carbon Dioxide 31 H (22-30) mmol/L BUN 44 H (9-20) mg/dL Creatinine 2.3 H (0.8-1.5) mg/dL Glucose 103 H (75-100) mg/dL Calcium 9.0 (8.4-10.2) mg/dL - Imaging and Cardiology EKG: report reviewed AV and intraventricular conduction: left bundle branch block
--- NOTE | 2016-05-01 17:50 | Progress Note ---
Assessment and Plan Assessment and plan: Multiple AICD discharges. He was initially by Dr. Butler, cardiology Director Of Clinical Education. No more AICD discharges since admitted Atrial fibrillation with rvr. Milrinone discontinued. Now on Amiodarone, Digoxin , Metoprolol Persistent afib. On Eliquis for anticoagulation Non sustained v tach. multiple episodes. Still having vtach. Increase dose of Metoprolol Acute on chronic systolic CHF. Cont Lasix iv, Milrinone drip discontinued Acute vs Acute on chronic kidney disease. Cr 2.5. improving Nephrology following.. Nonischemic cardiomyopathy s/p AICD placement Hypertension. BP stable Diabetes mellitus type 2. Check fingerstick Qac hs Morbid obesity. DVT prophylaxis. On Eliquis History of stroke. Hearing impaired Full code status [facility] d/c home in 1-2 days History Interval history: Patient admitted for multiple AICD firing, no chest pain, no shortness of breath, leg edema improved One episode of small amount red blood in stool-resolved Hospitalist Physical - Physical exam Narrative exam: Gen: not in acute distress, morbidly obese HEENT: normocephalic,atraumatic Neck :supple, no JVD Lungs: clear to auscultation bilaterally, no crackles no wheezes Heart: S1 and S2 irregularly irregular, no murmurs no gallops,no rubs Abdomen: soft nontender, nondistended, normal bowel sounds Extremities: less edema bilateral lower ext, no clubbing or cyanosis Neuro: Awake alert oriented, hearing impaired - Constitutional Vitals: Temp Pulse Resp BP Pulse Ox 98 F 113 H 16 121/76 98 05/01/16 16:25 05/01/16 16:25 05/01/16 16:25 05/01/16 16:25 05/01/16 16:25 General appearance: Present: mild distress, well-nourished - EENT Eyes: Present: exopthalmos Results - Labs CBC & Chem 7: 05/01/16 10:30 05/02/16 05:38 Labs: Laboratory Last Values WBC 5.1 K/mm3 (4.5-11.0) 04/26/16 06:41 RBC 6.66 M/mm3 (3.65-5.03) H 04/26/16 06:41 Hgb 14.1 gm/dl (11.8-15.2) 05/01/16 10:30 Hct 45.6 % (35.5-45.6) 05/01/16 10:30 MCV 70 fl (84-94) L 04/26/16 06:41 MCH 21 pg (28-32) L 04/26/16 06:41 MCHC 31 % (32-34) L 04/26/16 06:41 RDW 20.1 % (13.2-15.2) H 04/26/16 06:41 Plt Count 201 K/mm3 (140-440) 04/26/16 06:41 Lymph % (Auto) 18.6 % (13.4-35.0) 04/26/16 06:41 [place] % (Auto) 9.6 % (0.0-7.3) H 04/26/16 06:41 Eos % (Auto) 0.6 % (0.0-4.3) 04/26/16 06:41 Baso % (Auto) 1.2 % (0.0-1.8) 04/26/16 06:41 Lymph # 0.9 K/mm3 (1.2-5.4) L 04/26/16 06:41 [place] # 0.5 K/mm3 (0.0-0.8) 04/26/16 06:41 Eos # 0.0 K/mm3 (0.0-0.4) 04/26/16 06:41 Baso # 0.1 K/mm3 (0.0-0.1) 04/26/16 06:41 Seg Neutrophils % 70.0 % (40.0-70.0) 04/26/16 06:41 Seg Neutrophils # 3.5 K/mm3 (1.8-7.7) 04/26/16 06:41 PT 18.2 Sec. (12.2-14.9) H 04/25/16 10:53 INR 1.51 (0.87-1.13) H 04/25/16 10:53 APTT 28.3 Sec. (24.2-36.6) 04/25/16 10:53 D-Dimer < 136 ng/mlDDU (0-234) 04/25/16 10:53 Sodium 141 mmol/L (137-145) 05/01/16 04:51 Potassium 4.6 mmol/L (3.6-5.0) 05/01/16 04:51 Chloride 95.2 mmol/L (98-107) L 05/01/16 04:51 Carbon Dioxide 31 mmol/L (22-30) H 05/01/16 04:51 Anion Gap 19 mmol/L 05/01/16 04:51 BUN 44 mg/dL (9-20) H 05/01/16 04:51 Creatinine 2.3 mg/dL (0.8-1.5) H 05/01/16 04:51 Estimated GFR 39 ml/min 05/01/16 04:51 BUN/Creatinine Ratio 19.13 % 05/01/16 04:51 Glucose 103 mg/dL (75-100) H 05/01/16 04:51 POC Glucose 175 (70-105) H 04/30/16 23:15 Hemoglobin A1c 6.6 % (4-6) H 04/25/16 16:27 Uric Acid 15.4 mg/dL (3.5-7.6) H 04/30/16 06:36 Calcium 9.0 mg/dL (8.4-10.2) 05/01/16 04:51 Magnesium 1.9 mg/dL (1.7-2.3) 04/30/16 10:55 Total Bilirubin 3.0 mg/dL (0.1-1.2) H 04/26/16 06:41 AST 33 units/L (5-40) 04/26/16 06:41 ALT 60 units/L (7-56) H 04/26/16 06:41 Alkaline Phosphatase 101 units/L (35-129) 04/26/16 06:41 Total Creatine Kinase 103 units/L (55-170) 04/25/16 15:45 CK-MB (CK-2) 2.8 ng/mL (0.0-4.0) 04/25/16 15:45 CK-MB (CK-2) Rel Index 2.7 (0-4) 04/25/16 15:45 Troponin T 0.047 ng/mL (0.00-0.029) H D 04/25/16 15:45 NT-Pro-B Natriuret Pep 14353 pg/mL (0-450) H 04/25/16 10:53 Total Protein 6.3 g/dL (6.3-8.2) 04/26/16 06:41 Albumin 2.6 g/dL (3.9-5) L 04/26/16 06:41 Albumin/Globulin Ratio 0.7 % 04/26/16 06:41 Triglycerides 96 mg/dL (2-149) 04/25/16 10:53 Cholesterol 80 mg/dL (50-199) 04/25/16 10:53 LDL Cholesterol Direct 30 mg/dL (50-130) L 04/25/16 10:53 HDL Cholesterol 31 mg/dL (40-59) L 04/25/16 10:53 Cholesterol/HDL Ratio 2.58 % 04/25/16 10:53 Urine Color [place] (Yellow) 04/25/16 13:40 Urine Turbidity Cloudy (Clear) 04/25/16 13:40 Urine pH 5.0 (5.0-7.0) 04/25/16 13:40 Ur Specific [place] 1.017 (1.003-1.030) 04/25/16 13:40 Urine Protein >500 mg/dL (Negative) 04/25/16 13:40 Urine Glucose (UA) Neg mg/dL (Negative) 04/25/16 13:40 Urine Ketones Neg mg/dL (Negative) 04/25/16 13:40 Urine Blood Mod (Negative) 04/25/16 13:40 Urine Nitrite Neg (Negative) 04/25/16 13:40 Urine Bilirubin Neg (Negative) 04/25/16 13:40 Urine Urobilinogen 2.0 mg/dL (<2.0) 04/25/16 13:40 Ur Leukocyte Esterase Lg (Negative) 04/25/16 13:40 Urine WBC (Auto) > 182.0 /HPF (0.0-6.0) H 04/25/16 13:40 Urine RBC (Auto) 15.0 /HPF (0.0-6.0) 04/25/16 13:40 U Epithel Cells (Auto) 3.0 /HPF (0-13.0) 04/25/16 13:40 Urine Bacteria (Auto) 1+ /HPF (Negative) 04/25/16 13:40 Ur Transition Epith Cell 2 /HPF 04/25/16 13:40 Urine Mucus Few /HPF 04/25/16 13:40 Urine Eosinophils None seen (None Seen) 04/26/16 16:15 Urine Creatinine 102.8 mg/dL (0.1-20.0) H 04/26/16 16:15 Protein/Creatinin Ratio 1.82 04/26/16 16:15 Urine Sodium 12 mEq/L 04/26/16 16:15 Urine Total Protein 187 mg/dL (5-11.8) H 04/26/16 16:15 Urine Opiates Screen Presumptive negative 04/25/16 13:40 Urine Methadone Screen Presumptive negative 04/25/16 13:40 Ur Barbiturates Screen Presumptive negative 04/25/16 13:40 Ur Phencyclidine Scrn Presumptive negative 04/25/16 13:40 Ur Amphetamines Screen Presumptive negative 04/25/16 13:40 U Benzodiazepines Scrn Presumptive negative 04/25/16 13:40 Urine Cocaine Screen Presumptive negative 04/25/16 13:40 U Marijuana (THC) Screen Presumptive negative 04/25/16 13:40 Drugs of Abuse Note Disclamer 04/25/16 13:40
[2016-05-01] MEDS: CORDARONE PO SCH (22:43)
[2016-05-01] MEDS: ZOCOR PO SCH (22:43)
[2016-05-02] MEDS: PROVENTIL IH SCH ×4 (02:44→19:55)
[2016-05-02] MEDS: LASIX IV SCH ×2 (06:20→18:09)
[2016-05-02 07:06] LABS: BUN/Creatinine Ratio 22.6; Calcium 8.3 mg/dL (8.4-10.2); Chloride 98.9 mmol/L (98-107); Potassium 4.1 mmol/L (3.6-5.0)
[2016-05-02] MEDS: GLUCOTROL XL PO SCH (08:19)
[2016-05-02] MEDS: PERCOCET 5/325 PO PRN ×2 (08:19→14:16)
[2016-05-02] MEDS: LOPRESSOR PO SCH ×3 (08:19→21:57)
[2016-05-02] MEDS: NOVOLOG SUB-Q SCH ×4 (08:20→22:40)
--- NOTE | 2016-05-02 09:35 | Progress Note ---
Assessment and Plan Impression: * Acute kidney injury secondary to ?decreased effective circulatory volume vs chronic kidney disease * s/p ACID discharge * Nonischemic cardiomyopathy - LVEF 15-20% (Feb 2016) * Atrial fibrillation * Hypertension * UTI * Gout Plan: * Monitor SCr and UOP - need strict FADY * Serum creatinine noted to be improving * Currently off Milrinone gtt * Diuesis w/ IV lasix 80mg IV q12h * Patient noted to have a high uric acid level. Taper prednisone * Shall plan to add allopurinol after his gout flareup resolves. Hold off on adding a thiazide diuretic at this time * Avoid nephrotoxins * Strict I/O * Fluid restriction Subjective Date of service: 05/02/16 Principal diagnosis: Acute on chronic systolic heart failure Interval history: Patient is comfortable today. He does have some dyspnea on exertion. Negative edema is improving. Currently off milrinone drip Objective - Vital Signs Vital signs: Vital Signs - 12hr 05/01/16 05/01/16 05/02/16 22:06 22:41 00:00 Temperature 98.4 F 97.6 F Pulse Rate 61 Pulse Rate [ Anterior Bilateral Throughout] Pulse Rate [ 61 55 L Right Radial] Respiratory 20 18 Rate Respiratory Rate [Anterior Bilateral Throughout] Blood Pressure 114/72 Blood Pressure 114/70 110/80 [Right Radial Artery] O2 Sat by Pulse 100 100 Oximetry 05/02/16 05/02/16 05/02/16 02:46 03:01 06:31 Temperature 97.4 F L Pulse Rate Pulse Rate [ 58 L 59 L Anterior Bilateral Throughout] Pulse Rate [ 73 Right Radial] Respiratory 20 Rate Respiratory 18 18 Rate [Anterior Bilateral Throughout] Blood Pressure Blood Pressure 103/66 [Right Radial Artery] O2 Sat by Pulse 100 Oximetry 05/02/16 08:00 Temperature 97.4 F L Pulse Rate Pulse Rate [ Anterior Bilateral Throughout] Pulse Rate [ 80 Right Radial] Respiratory 18 Rate Respiratory Rate [Anterior Bilateral Throughout] Blood Pressure Blood Pressure 102/73 [Right Radial Artery] O2 Sat by Pulse 100 Oximetry - General Appearance General appearance: well-developed, well-nourished, appears stated age EENT: PERRL, mucous membranes moist Neck: no JVD, no thyromegaly, no carotid bruit, supple Respiratory: Present: Clear to Ascultation Cardiology: regular, normal heart rate, S1S2, no murmurs Gastrointestinal: normal, normoactive bowel sounds Integumentary: no rash, other (2+ edema) - Lab 05/01/16 10:30 05/02/16 05:38 Most recent lab results Calcium 8.3 mg/dL (8.4-10.2) L 05/02/16 05:38 Magnesium 1.9 mg/dL (1.7-2.3) 04/30/16 10:55 Urine Creatinine 102.8 mg/dL (0.1-20.0) H 04/26/16 16:15 Urine Sodium 12 mEq/L 04/26/16 16:15 Urine Total Protein 187 mg/dL (5-11.8) H 04/26/16 16:15
[2016-05-02] MEDS: FLONASE NS SCH (10:00)
[2016-05-02] MEDS: ROCEPHIN/NS 1 GM/50 ML 1 GM/50 ML BAG IV SCH (10:07)
[2016-05-02] MEDS: ELIQUIS PO SCH ×2 (10:08→21:57)
[2016-05-02] MEDS: VITAMIN B-12 PO SCH (10:08)
[2016-05-02] MEDS: COLCRYS PO SCH (10:08)
[2016-05-02] MEDS: CORDARONE PO SCH ×2 (10:08→21:56)
[2016-05-02] MEDS: PROTONIX PO SCH (10:08)
--- NOTE | 2016-05-02 10:28 | Progress Note ---
Assessment and Plan Multiple ICD therapies: Likely inappropriate due to atrial fibrillation with RVR Non Ischemic Cardiomyopathy s/p dual chamber ICD, LVEF 15-20% 02/2016 Acute on chronic systolic heart failure: NYHA III Persistent atrial fibrillation, rate controlled on eliquis for anticoagulation on amiodarone, digoxin and metoprolol CKD Non-specific troponin elevation likely related to multiple ICD therapies and CKD. LBBB Htn S/P CVA Recommend: Medical therapy for systolic heart failure. Rate control and anticoagulation for persistent afib. Strict I's and O's Dietary restrictions Subjective Date of service: 05/02/16 Principal diagnosis: Acute on chronic systolic heart failure Interval history: Brief episode of NSVT noted on telemetry this morning. Patient remained asymptomatic. Objective Vital Signs Temp Pulse Pulse Pulse Resp Resp BP 05/02/16 08:00 97.4 F L 80 18 05/02/16 06:31 97.4 F L 73 20 05/02/16 03:01 59 L 18 05/02/16 02:46 58 L 18 05/02/16 00:00 97.6 F 55 L 18 05/01/16 22:41 61 114/72 05/01/16 22:06 98.4 F 61 20 05/01/16 20:21 62 18 05/01/16 20:06 60 18 05/01/16 16:25 98 F 113 H 16 05/01/16 14:45 72 20 05/01/16 14:35 52 L 20 05/01/16 12:45 98 F 102 H 20 BP Pulse Ox 05/02/16 08:00 102/73 100 05/02/16 06:31 103/66 100 05/02/16 03:01 05/02/16 02:46 05/02/16 00:00 110/80 100 05/01/16 22:41 05/01/16 22:06 114/70 100 05/01/16 20:21 05/01/16 20:06 05/01/16 16:25 121/76 98 05/01/16 14:45 05/01/16 14:35 05/01/16 12:45 132/84 98 - Physical Examination General: No Apparent Distress HEENT: Positive: PERRL Neck: Positive: trachea midline Cardiac: Positive: irregularly irregular Lungs: Positive: Decreased Breath Sounds Neuro: Positive: Grossly Intact Extremities: Present: +1 Edema - Labs and Meds CBC 05/01/16 Range/Units 10:30 Hgb 14.1 (11.8-15.2) gm/dl Hct 45.6 (35.5-45.6) % Comprehensive Metabolic Panel 05/02/16 Range/Units 05:38 Sodium 142 (137-145) mmol/L Potassium 4.1 (3.6-5.0) mmol/L Chloride 98.9 (98-107) mmol/L Carbon Dioxide 30 (22-30) mmol/L BUN 52 H (9-20) mg/dL Creatinine 2.3 H (0.8-1.5) mg/dL Glucose 118 H (75-100) mg/dL Calcium 8.3 L (8.4-10.2) mg/dL - Imaging and Cardiology EKG: report reviewed AV and intraventricular conduction: left bundle branch block
[2016-05-02] MEDS ORDERED: CORDARONE 300 MG in D5W 100 ML IV ONE (11:44)
[2016-05-02] MEDS ORDERED: NACL 0.9% 250ML 250 ML IV ONE (13:51)
[2016-05-02] MEDS: DELTASONE PO SCH (14:17)
[2016-05-02] MEDS: LANOXIN PO SCH (14:21)
--- NOTE | 2016-05-02 17:55 | Progress Note ---
Assessment and Plan Assessment and plan: 40 YO man with h/o non ischemic cardiomyopathy s/p Biotronik dual chamber ICD, Ventricular Tachycardia, persistent atrial fibrillation, hypertension, and prior CVA who presented to ED at [facility] today after multiple ICD shocks. Patient has permanent hearing loss and some element of aphasia from previous CVA and is not able to provide a thorough history. ICD was interrogated today and he has had numerous ATP therapies and several ICD shocks due to likely atrial fibrillation with RVR. He admits to not taking his cardiac medications recently. He has chronic exertional dyspnea with minimal activity including activities of daily living. He was previously followed by Dr. Walter in [place] and was recently evaluated by cardiology at [facility]. Peripheral circulatory collapse-will give 250 mL of fluids. We'll transition to by mouth Lasix. Discussed with cardiology and orderly Multiple AICD discharges. He was initially by Dr. Butler, Cardiology Digital Media Director. No more AICD discharges since admitted Atrial fibrillation with rvr. Milrinone discontinued. Now on Amiodarone, Digoxin , Metoprolol Persistent afib. On Eliquis for anticoagulation Non sustained v tach. multiple episodes. Still having vtach. Increase dose of Metoprolol Acute on chronic systolic CHF. Cont Lasix iv, Milrinone drip discontinued Acute vs Acute on chronic kidney disease. Cr 2.5. improving Nephrology following.. Nonischemic cardiomyopathy s/p AICD placement Hypertension. BP stable Diabetes mellitus type 2. Check fingerstick Qac hs Morbid obesity. DVT prophylaxis. On Eliquis History of stroke. Hearing impaired Full code status [facility] d/c home in 1-2 days History Interval history: Patient seen and examined this morning in was a bit lethargic today reported DIZZINESS following administration of amiodarone IV Denies any chest pain, nausea, vomiting, diarrhea No fever noted blood pressure controlled on the low side No other adverse events reported to me by nursing staff Hospitalist Physical - Physical exam Narrative exam: VITAL SIGNS: Reviewed. GENERAL: The patient appeared well nourished and normally developed. Vital signs as documented. HEAD: No signs of head trauma. EYES: Pupils are equal. Extraocular motions intact. EARS: Hearing grossly intact. MOUTH: Oropharynx is normal. NECK: No adenopathy, no JVD. CHEST: Chest with clear breath sounds bilaterally. No wheezes, rales, or rhonchi. CARDIAC: irregular rate and rhythm. S1 and S2, without murmurs, gallops, or rubs. VASCULAR: 2+ Edema. Peripheral pulses normal and equal in all extremities. ABDOMEN: Soft, without detectable tenderness. No sign of distention. No rebound or guarding, and no masses palpated. Bowel Sounds normal. MUSCULOSKELETAL: Good range of motion of all major joints. Extremities without clubbing, cyanosis 2+ edema. NEUROLOGIC EXAM: Alert and oriented x 3. No focal sensory or strength deficits. Speech normal. Follows commands. PSYCHIATRIC: Mood normal. SKIN: No rash or lesions. - Constitutional Vitals: Temp Pulse Resp BP Pulse Ox 97.3 F L 79 18 99/70 100 05/02/16 11:30 05/02/16 14:21 05/02/16 11:30 05/02/16 11:30 05/02/16 11:30 General appearance: Present: mild distress, well-nourished Results - Labs CBC & Chem 7: 05/01/16 10:30 05/02/16 05:38 Labs: Laboratory Last Values WBC 5.1 K/mm3 (4.5-11.0) 04/26/16 06:41 RBC 6.66 M/mm3 (3.65-5.03) H 04/26/16 06:41 Hgb 14.1 gm/dl (11.8-15.2) 05/01/16 10:30 Hct 45.6 % (35.5-45.6) 05/01/16 10:30 MCV 70 fl (84-94) L 04/26/16 06:41 MCH 21 pg (28-32) L 04/26/16 06:41 MCHC 31 % (32-34) L 04/26/16 06:41 RDW 20.1 % (13.2-15.2) H 04/26/16 06:41 Plt Count 201 K/mm3 (140-440) 04/26/16 06:41 Lymph % (Auto) 18.6 % (13.4-35.0) 04/26/16 06:41 [place] % (Auto) 9.6 % (0.0-7.3) H 04/26/16 06:41 Eos % (Auto) 0.6 % (0.0-4.3) 04/26/16 06:41 Baso % (Auto) 1.2 % (0.0-1.8) 04/26/16 06:41 Lymph # 0.9 K/mm3 (1.2-5.4) L 04/26/16 06:41 [place] # 0.5 K/mm3 (0.0-0.8) 04/26/16 06:41 Eos # 0.0 K/mm3 (0.0-0.4) 04/26/16 06:41 Baso # 0.1 K/mm3 (0.0-0.1) 04/26/16 06:41 Seg Neutrophils % 70.0 % (40.0-70.0) 04/26/16 06:41 Seg Neutrophils # 3.5 K/mm3 (1.8-7.7) 04/26/16 06:41 PT 18.2 Sec. (12.2-14.9) H 04/25/16 10:53 INR 1.51 (0.87-1.13) H 04/25/16 10:53 APTT 28.3 Sec. (24.2-36.6) 04/25/16 10:53 D-Dimer < 136 ng/mlDDU (0-234) 04/25/16 10:53 Sodium 142 mmol/L (137-145) 05/02/16 05:38 Potassium 4.1 mmol/L (3.6-5.0) 05/02/16 05:38 Chloride 98.9 mmol/L (98-107) 05/02/16 05:38 Carbon Dioxide 30 mmol/L (22-30) 05/02/16 05:38 Anion Gap 17 mmol/L 05/02/16 05:38 BUN 52 mg/dL (9-20) H 05/02/16 05:38 Creatinine 2.3 mg/dL (0.8-1.5) H 05/02/16 05:38 Estimated GFR 39 ml/min 05/02/16 05:38 BUN/Creatinine Ratio 22.60 % 05/02/16 05:38 Glucose 118 mg/dL (75-100) H 05/02/16 05:38 POC Glucose 180 (70-105) H 05/01/16 23:00 Hemoglobin A1c 6.6 % (4-6) H 04/25/16 16:27 Uric Acid 15.4 mg/dL (3.5-7.6) H 04/30/16 06:36 Calcium 8.3 mg/dL (8.4-10.2) L 05/02/16 05:38 Magnesium 1.9 mg/dL (1.7-2.3) 04/30/16 10:55 Total Bilirubin 3.0 mg/dL (0.1-1.2) H 04/26/16 06:41 AST 33 units/L (5-40) 04/26/16 06:41 ALT 60 units/L (7-56) H 04/26/16 06:41 Alkaline Phosphatase 101 units/L (35-129) 04/26/16 06:41 Total Creatine Kinase 103 units/L (55-170) 04/25/16 15:45 CK-MB (CK-2) 2.8 ng/mL (0.0-4.0) 04/25/16 15:45 CK-MB (CK-2) Rel Index 2.7 (0-4) 04/25/16 15:45 Troponin T 0.047 ng/mL (0.00-0.029) H D 04/25/16 15:45 NT-Pro-B Natriuret Pep 55962 pg/mL (0-450) H 04/25/16 10:53 Total Protein 6.3 g/dL (6.3-8.2) 04/26/16 06:41 Albumin 2.6 g/dL (3.9-5) L 04/26/16 06:41 Albumin/Globulin Ratio 0.7 % 04/26/16 06:41 Triglycerides 96 mg/dL (2-149) 04/25/16 10:53 Cholesterol 80 mg/dL (50-199) 04/25/16 10:53 LDL Cholesterol Direct 30 mg/dL (50-130) L 04/25/16 10:53 HDL Cholesterol 31 mg/dL (40-59) L 04/25/16 10:53 Cholesterol/HDL Ratio 2.58 % 04/25/16 10:53 Urine Color [place] (Yellow) 04/25/16 13:40 Urine Turbidity Cloudy (Clear) 04/25/16 13:40 Urine pH 5.0 (5.0-7.0) 04/25/16 13:40 Ur Specific [place] 1.017 (1.003-1.030) 04/25/16 13:40 Urine Protein >500 mg/dL (Negative) 04/25/16 13:40 Urine Glucose (UA) Neg mg/dL (Negative) 04/25/16 13:40 Urine Ketones Neg mg/dL (Negative) 04/25/16 13:40 Urine Blood Mod (Negative) 04/25/16 13:40 Urine Nitrite Neg (Negative) 04/25/16 13:40 Urine Bilirubin Neg (Negative) 04/25/16 13:40 Urine Urobilinogen 2.0 mg/dL (<2.0) 04/25/16 13:40 Ur Leukocyte Esterase Lg (Negative) 04/25/16 13:40 Urine WBC (Auto) > 182.0 /HPF (0.0-6.0) H 04/25/16 13:40 Urine RBC (Auto) 15.0 /HPF (0.0-6.0) 04/25/16 13:40 U Epithel Cells (Auto) 3.0 /HPF (0-13.0) 04/25/16 13:40 Urine Bacteria (Auto) 1+ /HPF (Negative) 04/25/16 13:40 Ur Transition Epith Cell 2 /HPF 04/25/16 13:40 Urine Mucus Few /HPF 04/25/16 13:40 Urine Eosinophils None seen (None Seen) 04/26/16 16:15 Urine Creatinine 102.8 mg/dL (0.1-20.0) H 04/26/16 16:15 Protein/Creatinin Ratio 1.82 04/26/16 16:15 Urine Sodium 12 mEq/L 04/26/16 16:15 Urine Total Protein 187 mg/dL (5-11.8) H 04/26/16 16:15 Urine Opiates Screen Presumptive negative 04/25/16 13:40 Urine Methadone Screen Presumptive negative 04/25/16 13:40 Ur Barbiturates Screen Presumptive negative 04/25/16 13:40 Ur Phencyclidine Scrn Presumptive negative 04/25/16 13:40 Ur Amphetamines Screen Presumptive negative 04/25/16 13:40 U Benzodiazepines Scrn Presumptive negative 04/25/16 13:40 Urine Cocaine Screen Presumptive negative 04/25/16 13:40 U Marijuana (THC) Screen Presumptive negative 04/25/16 13:40 Drugs of Abuse Note Disclamer 04/25/16 13:40
[2016-05-02] MEDS: ZOCOR PO SCH (21:57)
[2016-05-03] MEDS: PROVENTIL IH SCH ×4 (02:40→21:57)
[2016-05-03] MEDS: LASIX IV SCH ×2 (05:33→17:54)
[2016-05-03 07:38] LABS: BUN/Creatinine Ratio 22.69; Calcium 8.9 mg/dL (8.4-10.2); Chloride 91.3 mmol/L (98-107); Potassium 3.9 mmol/L (3.6-5.0)
[2016-05-03] MEDS: NOVOLOG SUB-Q SCH ×4 (07:54→21:54)
[2016-05-03] MEDS: CORDARONE PO SCH ×2 (08:56→21:54)
[2016-05-03] MEDS: GLUCOTROL XL PO SCH (08:57)
[2016-05-03] MEDS: FLONASE NS SCH (08:59)
[2016-05-03] MEDS: COLCRYS PO SCH ×2 (08:59→21:52)
[2016-05-03] MEDS: LOPRESSOR PO SCH ×3 (08:59→21:53)
[2016-05-03] MEDS: VITAMIN B-12 PO SCH (08:59)
[2016-05-03] MEDS: DELTASONE PO SCH (09:00)
[2016-05-03] MEDS: PROTONIX PO SCH (09:00)
[2016-05-03] MEDS: ELIQUIS PO SCH ×2 (09:01→21:54)
[2016-05-03] MEDS: ROCEPHIN/NS 1 GM/50 ML 1 GM/50 ML BAG IV SCH (09:01)
--- NOTE | 2016-05-03 09:17 | Progress Note ---
Assessment and Plan Impression: * Acute kidney injury secondary to ?decreased effective circulatory volume vs chronic kidney disease * s/p ACID discharge * Nonischemic cardiomyopathy - LVEF 15-20% (Feb 2016) * Atrial fibrillation * Hypertension * UTI * Gout Plan: * Monitor SCr and UOP - urine output not being recorded accurately * Serum creatinine noted to be higher today at 2.6. Need to monitor closely * Currently off Milrinone gtt * Diuesis w/ IV lasix 80mg IV q12h * Patient noted to have a high uric acid level. His gout symptoms seems to be improving. Taper prednisone * Shall plan to add allopurinol after his gout flareup resolves. Hold off on adding a thiazide diuretic at this time * Avoid nephrotoxins * Strict I/O * Fluid restriction Subjective Date of service: 05/03/16 Principal diagnosis: Acute on chronic systolic heart failure Interval history: Patient is comfortable today. Denies any shortness of breath except on exertion. Leg edema seems to be improving. Gout pain seems to have resolved Objective - Vital Signs Vital signs: Vital Signs - 12hr 05/03/16 05/03/16 05/03/16 01:18 05:49 08:59 Temperature 97.5 F L 97.8 F Pulse Rate 77 Pulse Rate [ 75 77 Right Radial] Respiratory 18 99 H Rate Blood Pressure 138/86 Blood Pressure 124/94 138/86 [Right Radial Artery] O2 Sat by Pulse 95 99 Oximetry - General Appearance General appearance: well-developed, well-nourished, appears stated age EENT: PERRL, mucous membranes moist Neck: no JVD, no thyromegaly, no carotid bruit, supple Respiratory: Present: Clear to Ascultation Cardiology: regular, normal heart rate, S1S2, no murmurs Gastrointestinal: normal, normoactive bowel sounds Integumentary: no rash, other (1-2+ pitting edema) - Lab 05/01/16 10:30 05/03/16 06:53 Most recent lab results Calcium 8.9 mg/dL (8.4-10.2) 05/03/16 06:53 Magnesium 1.9 mg/dL (1.7-2.3) 04/30/16 10:55 Urine Creatinine 102.8 mg/dL (0.1-20.0) H 04/26/16 16:15 Urine Sodium 12 mEq/L 04/26/16 16:15 Urine Total Protein 187 mg/dL (5-11.8) H 04/26/16 16:15
--- NOTE | 2016-05-03 11:16 | Progress Note ---
Assessment and Plan Multiple ICD therapies: Likely inappropriate due to atrial fibrillation with RVR Non Ischemic Cardiomyopathy s/p dual chamber ICD, LVEF 15-20% 02/2016 Acute on chronic systolic heart failure: NYHA III Persistent atrial fibrillation, rate controlled on eliquis for anticoagulation on digoxin and metoprolol CKD Non-specific troponin elevation likely related to multiple ICD therapies and CKD. LBBB Htn S/P CVA NSVT on amiodarone for suppression Recommend: Medical therapy for systolic heart failure. Rate control and anticoagulation for persistent afib. Strict I's and O's Dietary restrictions Subjective Date of service: 05/03/16 Principal diagnosis: Acute on chronic systolic heart failure Interval history: Edema slow to improve. Objective Vital Signs Temp Pulse Pulse Pulse Resp Resp BP 05/03/16 08:59 77 138/86 05/03/16 08:00 97.7 F 78 18 05/03/16 05:49 97.8 F 77 99 H 05/03/16 01:18 97.5 F L 75 18 05/02/16 21:15 97.3 F L 91 H 20 05/02/16 20:11 58 L 16 05/02/16 20:00 79 05/02/16 19:56 56 L 16 05/02/16 16:30 97.9 F 68 20 05/02/16 14:21 79 05/02/16 11:30 97.3 F L 66 18 BP Pulse Ox 05/03/16 08:59 05/03/16 08:00 111/90 94 05/03/16 05:49 138/86 99 05/03/16 01:18 124/94 95 05/02/16 21:15 115/77 96 05/02/16 20:11 05/02/16 20:00 05/02/16 19:56 05/02/16 16:30 126/86 99 05/02/16 14:21 05/02/16 11:30 99/70 100 - Physical Examination General: No Apparent Distress HEENT: Positive: PERRL Neck: Positive: trachea midline Cardiac: Positive: irregularly irregular Lungs: Positive: Decreased Breath Sounds Neuro: Positive: Grossly Intact Extremities: Present: +1 Edema - Labs and Meds Comprehensive Metabolic Panel 05/03/16 Range/Units 06:53 Sodium 137 (137-145) mmol/L Potassium 3.9 (3.6-5.0) mmol/L Chloride 91.3 L (98-107) mmol/L Carbon Dioxide 28 (22-30) mmol/L BUN 59 H (9-20) mg/dL Creatinine 2.6 H (0.8-1.5) mg/dL Glucose 112 H (75-100) mg/dL Calcium 8.9 (8.4-10.2) mg/dL - Imaging and Cardiology EKG: report reviewed AV and intraventricular conduction: left bundle branch block
[2016-05-03] MEDS: APRESOLINE PO SCH ×2 (14:58→21:53)
--- NOTE | 2016-05-03 17:12 | Progress Note ---
Assessment and Plan Assessment and plan: 40 YO man with h/o non ischemic cardiomyopathy s/p Biotronik dual chamber ICD, Ventricular Tachycardia, persistent atrial fibrillation, hypertension, and prior CVA who presented to ED at [facility] today after multiple ICD shocks. Patient has permanent hearing loss and some element of aphasia from previous CVA and is not able to provide a thorough history. ICD was interrogated today and he has had numerous ATP therapies and several ICD shocks due to likely atrial fibrillation with RVR. He admits to not taking his cardiac medications recently. He has chronic exertional dyspnea with minimal activity including activities of daily living. He was previously followed by Dr. Walter in [place] and was recently evaluated by cardiology at [facility]. Peripheral circulatory collapse-will give 250 mL of fluids. LASIX. Discussed with cardiology and olericulturist Multiple AICD discharges. He was initially by Dr. Butler, Cardiology [employer]. No more AICD discharges since admitted Atrial fibrillation with rvr. Milrinone discontinued. Now on Amiodarone, Digoxin , Metoprolol Persistent afib. On Eliquis for anticoagulation Non sustained v tach. multiple episodes. metoprolol increased. Amiodraone added. no further episoide Acute on chronic systolic CHF. Cont Lasix iv, Milrinone drip discontinued Acute vs Acute on chronic kidney disease. Cr 2.6. Slightly elevated. Nonischemic cardiomyopathy s/p AICD placement Hypertension. BP stable Diabetes mellitus type 2. Check fingerstick Qac hs Morbid obesity. DVT prophylaxis. On Eliquis History of stroke. Hearing impaired Full code status Discussed with spouse, requesting syphillis test. educated spouse testing can only be done with patients approval. [facility] d/c home in 1-2 days History Interval history: Patient seen and examined this morning, feeling better today today. Denies any chest pain, nausea, vomiting, diarrhea No fever noted blood pressure controlled on the low side No other adverse events reported to me by nursing staff Hospitalist Physical - Physical exam Narrative exam: VITAL SIGNS: Reviewed. GENERAL: The patient appeared well nourished and normally developed. Vital signs as documented. HEAD: No signs of head trauma. EYES: Pupils are equal. Extraocular motions intact. EARS: Hearing grossly intact. MOUTH: Oropharynx is normal. NECK: No adenopathy, no JVD. CHEST: Chest with clear breath sounds bilaterally. No wheezes, rales, or rhonchi. CARDIAC: irregular rate and rhythm. S1 and S2, without murmurs, gallops, or rubs. VASCULAR: 2+ Edema. Peripheral pulses normal and equal in all extremities. ABDOMEN: Soft, without detectable tenderness. No sign of distention. No rebound or guarding, and no masses palpated. Bowel Sounds normal. MUSCULOSKELETAL: Good range of motion of all major joints. Extremities without clubbing, cyanosis 2+ edema. NEUROLOGIC EXAM: Alert and oriented x 3. No focal sensory or strength deficits. Speech normal. Follows commands. PSYCHIATRIC: Mood normal. SKIN: No rash or lesions. - Constitutional Vitals: Temp Pulse Resp BP Pulse Ox 97.7 F 52 L 20 138/86 94 05/03/16 08:00 05/03/16 09:08 05/03/16 09:08 05/03/16 08:59 05/03/16 08:00 General appearance: Present: mild distress, well-nourished Results - Labs CBC & Chem 7: 05/01/16 10:30 05/03/16 06:53 Labs: Laboratory Last Values WBC 5.1 K/mm3 (4.5-11.0) 04/26/16 06:41 RBC 6.66 M/mm3 (3.65-5.03) H 04/26/16 06:41 Hgb 14.1 gm/dl (11.8-15.2) 05/01/16 10:30 Hct 45.6 % (35.5-45.6) 05/01/16 10:30 MCV 70 fl (84-94) L 04/26/16 06:41 MCH 21 pg (28-32) L 04/26/16 06:41 MCHC 31 % (32-34) L 04/26/16 06:41 RDW 20.1 % (13.2-15.2) H 04/26/16 06:41 Plt Count 201 K/mm3 (140-440) 04/26/16 06:41 Lymph % (Auto) 18.6 % (13.4-35.0) 04/26/16 06:41 Rock % (Auto) 9.6 % (0.0-7.3) H 04/26/16 06:41 Eos % (Auto) 0.6 % (0.0-4.3) 04/26/16 06:41 Baso % (Auto) 1.2 % (0.0-1.8) 04/26/16 06:41 Lymph # 0.9 K/mm3 (1.2-5.4) L 04/26/16 06:41 Rock # 0.5 K/mm3 (0.0-0.8) 04/26/16 06:41 Eos # 0.0 K/mm3 (0.0-0.4) 04/26/16 06:41 Baso # 0.1 K/mm3 (0.0-0.1) 04/26/16 06:41 Seg Neutrophils % 70.0 % (40.0-70.0) 04/26/16 06:41 Seg Neutrophils # 3.5 K/mm3 (1.8-7.7) 04/26/16 06:41 PT 18.2 Sec. (12.2-14.9) H 04/25/16 10:53 INR 1.51 (0.87-1.13) H 04/25/16 10:53 APTT 28.3 Sec. (24.2-36.6) 04/25/16 10:53 D-Dimer < 136 ng/mlDDU (0-234) 04/25/16 10:53 Sodium 137 mmol/L (137-145) 05/03/16 06:53 Potassium 3.9 mmol/L (3.6-5.0) 05/03/16 06:53 Chloride 91.3 mmol/L (98-107) L 05/03/16 06:53 Carbon Dioxide 28 mmol/L (22-30) 05/03/16 06:53 Anion Gap 22 mmol/L 05/03/16 06:53 BUN 59 mg/dL (9-20) H 05/03/16 06:53 Creatinine 2.6 mg/dL (0.8-1.5) H 05/03/16 06:53 Estimated GFR 34 ml/min 05/03/16 06:53 BUN/Creatinine Ratio 22.69 % 05/03/16 06:53 Glucose 112 mg/dL (75-100) H 05/03/16 06:53 POC Glucose 156 (70-105) H 05/02/16 22:05 Hemoglobin A1c 6.6 % (4-6) H 04/25/16 16:27 Uric Acid 15.4 mg/dL (3.5-7.6) H 04/30/16 06:36 Calcium 8.9 mg/dL (8.4-10.2) 05/03/16 06:53 Magnesium 1.9 mg/dL (1.7-2.3) 04/30/16 10:55 Total Bilirubin 3.0 mg/dL (0.1-1.2) H 04/26/16 06:41 AST 33 units/L (5-40) 04/26/16 06:41 ALT 60 units/L (7-56) H 04/26/16 06:41 Alkaline Phosphatase 101 units/L (35-129) 04/26/16 06:41 Total Creatine Kinase 103 units/L (55-170) 04/25/16 15:45 CK-MB (CK-2) 2.8 ng/mL (0.0-4.0) 04/25/16 15:45 CK-MB (CK-2) Rel Index 2.7 (0-4) 04/25/16 15:45 Troponin T 0.047 ng/mL (0.00-0.029) H D 04/25/16 15:45 NT-Pro-B Natriuret Pep 98080 pg/mL (0-450) H 04/25/16 10:53 Total Protein 6.3 g/dL (6.3-8.2) 04/26/16 06:41 Albumin 2.6 g/dL (3.9-5) L 04/26/16 06:41 Albumin/Globulin Ratio 0.7 % 04/26/16 06:41 Triglycerides 96 mg/dL (2-149) 04/25/16 10:53 Cholesterol 80 mg/dL (50-199) 04/25/16 10:53 LDL Cholesterol Direct 30 mg/dL (50-130) L 04/25/16 10:53 HDL Cholesterol 31 mg/dL (40-59) L 04/25/16 10:53 Cholesterol/HDL Ratio 2.58 % 04/25/16 10:53 Urine Color Mylene (Yellow) 04/25/16 13:40 Urine Turbidity Cloudy (Clear) 04/25/16 13:40 Urine pH 5.0 (5.0-7.0) 04/25/16 13:40 Ur Specific [place] 1.017 (1.003-1.030) 04/25/16 13:40 Urine Protein >500 mg/dL (Negative) 04/25/16 13:40 Urine Glucose (UA) Neg mg/dL (Negative) 04/25/16 13:40 Urine Ketones Neg mg/dL (Negative) 04/25/16 13:40 Urine Blood Mod (Negative) 04/25/16 13:40 Urine Nitrite Neg (Negative) 04/25/16 13:40 Urine Bilirubin Neg (Negative) 04/25/16 13:40 Urine Urobilinogen 2.0 mg/dL (<2.0) 04/25/16 13:40 Ur Leukocyte Esterase Lg (Negative) 04/25/16 13:40 Urine WBC (Auto) > 182.0 /HPF (0.0-6.0) H 04/25/16 13:40 Urine RBC (Auto) 15.0 /HPF (0.0-6.0) 04/25/16 13:40 U Epithel Cells (Auto) 3.0 /HPF (0-13.0) 04/25/16 13:40 Urine Bacteria (Auto) 1+ /HPF (Negative) 04/25/16 13:40 Ur Transition Epith Cell 2 /HPF 04/25/16 13:40 Urine Mucus Few /HPF 04/25/16 13:40 Urine Eosinophils None seen (None Seen) 04/26/16 16:15 Urine Creatinine 102.8 mg/dL (0.1-20.0) H 04/26/16 16:15 Protein/Creatinin Ratio 1.82 04/26/16 16:15 Urine Sodium 12 mEq/L 04/26/16 16:15 Urine Total Protein 187 mg/dL (5-11.8) H 04/26/16 16:15 Urine Opiates Screen Presumptive negative 04/25/16 13:40 Urine Methadone Screen Presumptive negative 04/25/16 13:40 Ur Barbiturates Screen Presumptive negative 04/25/16 13:40 Ur Phencyclidine Scrn Presumptive negative 04/25/16 13:40 Ur Amphetamines Screen Presumptive negative 04/25/16 13:40 U Benzodiazepines Scrn Presumptive negative 04/25/16 13:40 Urine Cocaine Screen Presumptive negative 04/25/16 13:40 U Marijuana (THC) Screen Presumptive negative 04/25/16 13:40 Drugs of Abuse Note Disclamer 04/25/16 13:40
[2016-05-03] MEDS: ZOCOR PO SCH (21:53)
[2016-05-03] MEDS ORDERED: PROVENTIL IH PRN (22:08)
[2016-05-04] MEDS: APRESOLINE PO SCH (05:40)
[2016-05-04] MEDS: LASIX IV SCH (05:40)
[2016-05-04 06:33] LABS: BUN/Creatinine Ratio 23.84; Calcium 8.5 mg/dL (8.4-10.2); Chloride 93.2 mmol/L (98-107); Potassium 3.6 mmol/L (3.6-5.0)
[2016-05-04] MEDS: GLUCOTROL XL PO SCH (08:15)
[2016-05-04] MEDS: LOPRESSOR PO SCH (08:15)
[2016-05-04] MEDS: ROCEPHIN/NS 1 GM/50 ML 1 GM/50 ML BAG IV SCH (09:00)
[2016-05-04 09:14] VITALS: BP 108/59
[2016-05-04] MEDS ORDERED: CORDARONE PO SCH (10:00)
--- NOTE | 2016-05-04 10:17 | Progress Note ---
Assessment and Plan Multiple ICD therapies: Likely inappropriate due to atrial fibrillation with RVR Non Ischemic Cardiomyopathy s/p dual chamber ICD, LVEF 15-20% 02/2016 Acute on chronic systolic heart failure: NYHA III Persistent atrial fibrillation, rate controlled on eliquis for anticoagulation on digoxin and metoprolol CKD Non-specific troponin elevation likely related to multiple ICD therapies and CKD. LBBB Htn S/P CVA NSVT on amiodarone for suppression Recommend: Medical therapy for systolic heart failure. Rate control and anticoagulation for persistent afib. Dietary restrictions Subjective Date of service: 05/04/16 Principal diagnosis: Acute on chronic systolic heart failure Interval history: Edema slow to improve. Shortness of breath is less. Objective Vital Signs Temp Pulse Pulse Pulse Resp Resp BP 05/04/16 09:13 97.4 F L 98 H 20 108/59 05/04/16 08:15 82 05/04/16 05:13 97.5 F L 74 20 103/80 05/04/16 01:10 97.3 F L 79 20 135/65 05/04/16 00:09 86 05/03/16 22:50 55 L 18 05/03/16 22:04 05/03/16 21:59 50 L 18 05/03/16 20:43 98.9 F 52 L 18 113/73 05/03/16 19:46 97.7 F 78 18 132/97 05/03/16 17:41 97.7 F 78 18 132/97 05/03/16 15:05 50 L 20 05/03/16 14:55 46 L 18 Pulse Ox 05/04/16 09:13 98 05/04/16 08:15 05/04/16 05:13 99 05/04/16 01:10 97 05/04/16 00:09 05/03/16 22:50 99 05/03/16 22:04 100 05/03/16 21:59 05/03/16 20:43 95 05/03/16 19:46 98 05/03/16 17:41 98 05/03/16 15:05 05/03/16 14:55 - Physical Examination General: No Apparent Distress HEENT: Positive: PERRL Neck: Positive: trachea midline Cardiac: Positive: irregularly irregular Lungs: Positive: Decreased Breath Sounds Neuro: Positive: Grossly Intact Skin: Positive: Clear Extremities: Present: +1 Edema - Labs and Meds Comprehensive Metabolic Panel 05/04/16 Range/Units 05:56 Sodium 135 L (137-145) mmol/L Potassium 3.6 (3.6-5.0) mmol/L Chloride 93.2 L (98-107) mmol/L Carbon Dioxide 29 (22-30) mmol/L BUN 62 H (9-20) mg/dL Creatinine 2.6 H (0.8-1.5) mg/dL Glucose 99 (75-100) mg/dL Calcium 8.5 (8.4-10.2) mg/dL - Imaging and Cardiology EKG: report reviewed AV and intraventricular conduction: left bundle branch block
--- NOTE | 2016-05-04 10:45 | Discharge Summary ---
Providers - Providers Date of Admission: 04/25/16 13:32 Date of discharge: 05/04/16 Attending physician: ALEXEI LAL MD 04/25/16 13:43 Consult to Physician [CONS] Routine Consulting Provider: PRITESH BUTLER Reason For Exam: A-fib with RVR, defib firing Place consult to:: Dr. Dina Butler Notified:: yes Phone number called:: overhead page Was contact made?: Yes If yes, spoke with:: Dr Butler Time called:: 13:01 04/26/16 09:00 Consult to Physician [CONS] Routine Consulting Provider: WARNER TORRES Reason For Exam: CKD Place consult to:: Dr. Torres Notified:: Onome RN Was contact made?: Yes If yes, spoke with:: Dr. Morgan Time called:: 09:27 Primary care physician: WEBSITE PROJECT MANAGER Hospitalization Reason for admission: AICD discharge Condition: Stable Hospital course: Patient is a 40 YO man with h/o non ischemic cardiomyopathy s/p Biotronik dual chamber ICD, Ventricular Tachycardia, persistent atrial fibrillation, hypertension, and prior CVA who presented to ED at [facility] today after multiple ICD shocks. Patient has permanent hearing loss and some element of aphasia from previous CVA and is not able to provide a thorough history. ICD was interrogated and he has had numerous ATP therapies and several ICD shocks due to likely atrial fibrillation with RVR. He admits to not taking his cardiac medications recently. He has chronic exertional dyspnea with minimal activity including activities of daily living. He was previously followed by Dr. Walter in [place] and was recently evaluated by cardiology at [facility]. On admission patient was significantly and fluid overload. he did have multiple runs of nonsustained V. tach for which amiodarone was added to his treatment. He did have an episode of syncope following administration of amiodarone. We did aggressively diuresing him he did have acute kidney injury with improvement down to his baseline. We did change his medication to torsemide better absorption. This was related to him and to his family member. He is clinically stable at this time and is to follow with cardiology outpatient due to his severe gout is thiazide was discontinued. He was started on prednisone with a tapering dose. He understands need to be compliant with his medication also to follow-up with cardiology and golf player assistant. There was a request for syphilis to be done on this patient but the patient declined. Discharge diagnosis Peripheral circulatory collapse/autonomic peripheral imbalance Multiple AICD discharges. Atrial fibrillation with rvr. Persistent afib. Non sustained v tach. Acute on chronic systolic CHF. Gout Acute kidney injury on chronic kidney disease. Cr 2.6. Nonischemic cardiomyopathy s/p AICD placement-LVEF 15-20% (Feb 2016) Hypertension. Diabetes mellitus type 2. Morbid obesity. History of stroke. Hearing impaired Disposition: DC/TX HOME UNDER HOME HEALTH Time spent for discharge: 35 mins Core Measure Documentation - Palliative Care Palliative Care/ Comfort Measures: Not Applicable - Core Measures Any of the following diagnoses?: heart failure - VTE Discharge Requirements Deep Vein Thrombosis/Pulmonary Embolism Present on Admission: No - Heart Failure Discharge Requirements SEFERINO/ARB for LVSD if EF <40%: No Reason for no SEFERINO/ARB: Renal impairment Beta brodie at discharge: Yes Exam - Physical Exam Narrative exam: VITAL SIGNS: Reviewed. GENERAL: The patient appeared well nourished and normally developed. Vital signs as documented. HEAD: No signs of head trauma. EYES: Pupils are equal. Extraocular motions intact. EARS: Hearing grossly intact. MOUTH: Oropharynx is normal. NECK: No adenopathy, no JVD. CHEST: Chest with clear breath sounds bilaterally. No wheezes, rales, or rhonchi. CARDIAC: irregular rate and rhythm. S1 and S2, without murmurs, gallops, or rubs. VASCULAR: 2+ Edema. Peripheral pulses normal and equal in all extremities. ABDOMEN: Soft, without detectable tenderness. No sign of distention. No rebound or guarding, and no masses palpated. Bowel Sounds normal. MUSCULOSKELETAL: Good range of motion of all major joints. Extremities without clubbing, cyanosis 2+ edema. NEUROLOGIC EXAM: Alert and oriented x 3. No focal sensory or strength deficits. Speech normal. Follows commands. PSYCHIATRIC: Mood normal. SKIN: No rash or lesions. - Constitutional Vitals: Temp Pulse Resp BP Pulse Ox 97.4 F L 98 H 20 108/59 98 05/04/16 09:13 05/04/16 09:13 05/04/16 09:13 05/04/16 09:13 05/04/16 09:13 Plan Activity: advance as tolerated, fall precautions Diet: low salt Special Instructions: restrict fluid intake to (1200cc/day), physical therapy, occupational therapy, home health RN Follow up with: PRIMARY CARE, [Primary Care Provider] - 3-5 Days SHANNON JAIMES MD [Staff Physician] - 7 Days MARCO LANDEROS MD [Staff Physician] - 7 Days Prescriptions: Colchicine [Colcrys] 0.6 mg PO QDAY #20 tablet Digoxin [Lanoxin] 0.125 mg PO Q48H #30 tablet hydrALAZINE [Apresoline TAB] 25 mg PO Q8HR #30 tablet Metoprolol [Lopressor TAB] 100 mg PO BID #60 tablet oxyCODONE /ACETAMINOPHEN [Percocet 5/325 mg] 1 tab PO Q6H PRN #14 tablet PRN Reason: Pain, Moderate (4-6) predniSONE [Deltasone] 10 mg PO .TAPER #21 tab Torsemide [Demadex] 50 mg PO BID@0600,1800 #60 tablet
[2016-05-04] MEDS: PROTONIX PO SCH (11:45)
[2016-05-04] MEDS: COLCRYS PO SCH (11:46)
[2016-05-04] MEDS: DELTASONE PO SCH (11:46)
[2016-05-04] MEDS: VITAMIN B-12 PO SCH (11:46)
[2016-05-04] MEDS: FLONASE NS SCH (11:47)
[2016-05-04] MEDS: ELIQUIS PO SCH (11:47)
[2016-05-04] MEDS: LANOXIN PO SCH (11:52)
[2016-05-04] MEDS ORDERED: ZAROXOLYN PO ONE (12:00)
[2016-05-04] MEDS ORDERED: DEMADEX PO SCH (18:00)
== END 2016-05-04 15:26 | disposition home health service (06) | DRG 291 ==
LOC: ED 10:32 → 4A 13:32
PROVIDERS: ADMIT Internal Medicine; ATTEND Internal Medicine
PROC: 4B02XTZ Measurement of Cardiac Defibrillator, External Approach (ICD-10-PCS; principal; 2016-04-25)
DX: I13.0 Hypertensive heart and chronic kidney disease with heart failure and stage 1 through stage 4 chronic kidney disease, or unspecified chronic kidney disease (principal); I50.43 Acute on chronic combined systolic (congestive) and diastolic (congestive) heart failure; N17.9 Acute kidney failure, unspecified; I48.1 Persistent atrial fibrillation; N39.0 Urinary tract infection, site not specified; I47.2 Ventricular tachycardia; Z68.43 Body mass index [BMI] 50.0-59.9, adult; I42.9 Cardiomyopathy, unspecified; E11.22 Type 2 diabetes mellitus with diabetic chronic kidney disease; N18.9 Chronic kidney disease, unspecified; I44.7 Left bundle-branch block, unspecified; E66.01 Morbid (severe) obesity due to excess calories; M10.9 Gout, unspecified; H91.90 Unspecified hearing loss, unspecified ear; R06.09 Other forms of dyspnea; Z86.73 Personal history of transient ischemic attack (TIA), and cerebral infarction without residual deficits; Z82.49 Family history of ischemic heart disease and other diseases of the circulatory system; Z87.891 Personal history of nicotine dependence; Z88.6 Allergy status to analgesic agent
CPT/HCPCS: 36415; 71010; 76770; 76857; 80048; 80053; 80061; 80307; 81001; 82550; 82553; 82570; 82962; 83036; 83735; 83880; 84156; 84300; 84484; 84550; 85014; 85018; 85025; 85379; 85610; 85730; 89050; 93005; 93010; 94640; 94660; 96374; 96376; J0282; J0696; J1815; J1940; J2260; J2405; J3475; J7050; J7512